=== PATIENT | female | born 1950 | race Caucasian/White ===

== ENCOUNTER 2019-04-11 09:30 | Inpatient (IN) ==
[2019-04-11 10:12] LABS: BASO# 0.01 X1000 (0.0-0.2); BASO% 0.1 % (0.0-0.8); EOS# 0.02 X1000 (0.0-0.7); EOS% 0.2 % (0.0-10.0); HEMATOCRIT 42.5 % (37.0-47.0); HEMOGLOBIN 14.4 g/dL (12.0-16.0); IMM GRAN# 0.02 X1000 (0.0-0.04); IMM GRAN% 0.2 % (0.0-0.5); LYMPH# 1.38 X1000 (1.2-3.4); LYMPH% 14.1 % (20.5-51.1); MCH 29.8 PG (27-31); MCHC 33.9 g/dL (33-37); MCV 87.8 FL (81-99); MONO# 1.13 X1000 (0.11-0.59); MONO% 11.5 % (1.7-9.3); MPV 10.1 FL (7.4-10.4); NEUT# 7.23 X1000 (1.4-6.5); NEUT% 73.9 % (42.2-75.2); PLT 270 X1000 (130-400); RBC 4.84 XMIL (4.2-5.4); RDW 13.8 % (11.5-14.5); WBC 9.79 X1000 (4.8-10.8)
--- NOTE | 2019-04-11 10:22 | PROVIDER DOCUMENTATION ---
This chart was entered by Samantha Obrien Scribe, acting as scribe for Shorty Muniz MD. HPI-Respiratory General - General Chief Complaint: Shortness of Breath Stated Complaint: sob Time Seen by Provider: 04/11/19 09:55 Source: patient Allergies/Adverse Reactions: Patient Allergies Allergy/AdvReac Type Severity Reaction Status Date / Time No Known Allergies Allergy Verified 04/11/19 09:52 Home Medications: Home Medication List Medication Instructions Recorded Confirmed Last Taken Type Umeclidinium [place] [Incruse 1 puff IH DAILY 02/25/16 04/11/19 02/25/16 History Ellipta] Alprazolam [Xanax] 2 mg PO TID 10/07/16 04/11/19 Unknown History Atorvastatin Calcium [Lipitor] 40 mg PO QAM 10/07/16 04/11/19 Unknown History Fenofibrate Nanocrystallized 145 mg PO QHS 10/07/16 04/11/19 Unknown History [Tricor] Fluoxetine HCl [Prozac] 40 mg PO BID 10/07/16 04/11/19 Unknown History Albuterol Sulfate [Ventolin Hfa] 2 puff INH BID 04/11/19 04/11/19 Unknown History - History of Present Illness-Resp Nature of Presenting Problem: 68 y/o female with history of COPD complaining of worsening SOB and cough for past 3 days ago. Pt used to be on home O2, but was taken off of it. Pt is alert and oriented. Quality of Pain: reports: none Severity in ED: reports: mild Onset/Duration: reports: 2 days ago Timing: reports: still present, getting worse Context: reports: other (hx COPD) Exposure: reports: other (hx COPD) Cough Quality/Degree: reports: moderate Episode Frequency: chronic episodes (hx COPD) Current Respiratory Medication Therapy: Initiated see nurses note Modifying Factors: improves with: nothing Associated Symptoms: reports: cough, shortness of breath, short of breath Similar Symptoms Previously?: Yes (hx COPD) Recently seen or treated by another doctor?: No Review of Systems - Adult - REVIEW OF SYSTEMS - ADULT Constitutional: denies: chills, fever Eyes: reports: no symptoms reported Ears, Nose, Mouth & Throat: reports: no symptoms reported Cardiovascular: denies: chest pain, palpitations Respiratory: reports: cough, shortness of breath Gastrointestinal: denies: abdominal pain, diarrhea, nausea, vomiting Genitourinary: reports: no symptoms reported Musculoskeletal: denies: back pain, joint pain Integumentary: reports: no symptoms reported Neurological: denies: dizziness/vertigo, seizure Psychiatric: reports: no symptoms reported Endocrine: reports: no symptoms reported Hematologic/Lymphatic: reports: no symptoms reported Allergic/Immunologic: reports: no symptoms reported All Other Systems: Reviewed and Negative Past History - Adult - PAST MEDICAL HISTORY-ADULT Review of Records: reports: Old Records Reviewed, Nursing Assessment Review, Medications Reviewed Major Childhood Illnesses: reports: denies history Cardiovascular: reports: HTN, hyperlipidemia Respiratory: reports: COPD Gastrointestinal: reports: cancer (colon), GERD, other (hernia) Obstetrical/Gynecological: reports: denies history Genitourinary: reports: denies history Musculoskeletal: reports: denies history Neurological: reports: denies history Endocrine/Immune: reports: denies history Other Conditions: reports: denies history - PRIOR SURGERIES/PROCEDURES Surgical/Procedure History: reports: appendectomy, hysterectomy, other (colon resection with colostomy/ colostomy reversal; blood clots, throat, tumors) - IMMUNIZATION STATUS Childhood Immunizations: See Nurse Assessment Flu Vaccine: See Nurse Assessment - FAMILY HISTORY Family History: reviewed, not pertinent - SOCIAL HISTORY Smoking: greater than 1 pack/day Provider spent 3-5 mins advising pt. on dangers of tobacco.: Discussed manners to quit use, and f/u contacts for add'l counseling. Substance Use: none/never Alcohol Use Frequency: never Living Situation: family Physical Exam-General - PHYSICAL EXAM-ADULT Initial Vital Signs Reviewed: Yes (93% O2 sat with nebulizer) - CONSTITUTIONAL General Appearance: appears well, alert, no apparent distress - EYES Eyes: PERRL/EOMI, pink conjunctivae - HEAD, EARS, NOSE, MOUTH & THROAT HENMT: normocephalic/atraumatic, moist mucous membranes, normal ENT inspection - NECK Neck: non-tender, full range of motion - RESPIRATORY Respiratory: chest non-tender, no respiratory distress, no accessory muscle use, decreased breath sounds, wheezing - CARDIOVASCULAR Cardiovascular: normal peripheral pulses, regular rate, rhythm - GASTROINTESTINAL (ABDOMEN) Abdominal Exam: normal bowel sounds, non tender, soft, hernia (ventral) - MUSCULOSKELETAL Back Exam: normal inspection, no CVA tenderness Extremity: normal range of motion, non-tender, normal gait - SKIN Integumentary: normal color, warm/dry - NEUROLOGIC Neurologic: grossly normal - PSYCHIATRIC Psych/Mental Status: normal mood/affect, normal thought content, normal thought process - HEART Score HEART Score: History: Slightly Suspicious HEART Score: ECG: Normal HEART Score: Age: > or = 65 Years HEART Score: Risk Factors for Atherosclerotic Disease: 1 or 2 Risk Factors HEART Score: Troponin: < or = Normal Limit Total HEART Score:: 3 Progress - PLAN OF CARE/RESULTS Progress/Plan/Lab Results: Vital Signs - 8 hr 04/11/19 09:45 04/11/19 10:00 04/11/19 10:19 Temperature 98.2 F Pulse Rate 98 H 101 H 95 H Respiratory Rate 25 H 19 Blood Pressure 128/102 132/110 O2 Sat by Pulse Oximetry 88 L 93 L 93 L 04/11/19 10:30 04/11/19 11:00 04/11/19 11:30 Temperature Pulse Rate 98 H 96 H 87 Respiratory Rate 20 18 20 Blood Pressure 122/84 123/74 112/85 O2 Sat by Pulse Oximetry 93 L 89 L 04/11/19 12:00 04/11/19 12:30 Temperature Pulse Rate 91 H 87 Respiratory Rate 18 19 Blood Pressure 127/91 145/98 O2 Sat by Pulse Oximetry Laboratory Results - last 24 hr 04/11/19 04/11/19 04/11/19 10:03 10:03 10:03 WBC 9.79 RBC 4.84 Hgb 14.4 Hct 42.5 MCV 87.8 MCH 29.8 MCHC 33.9 RDW Std Deviation 13.8 Plt Count 270 MPV 10.1 Immature Gran % (Auto) 0.2 Neut % (Auto) 73.9 Lymph % (Auto) 14.1 L [place] % (Auto) 11.5 H Eos % (Auto) 0.2 Baso % (Auto) 0.1 Immature Gran # (Auto) 0.02 Neut # (Auto) 7.23 H Lymph # (Auto) 1.38 [place] # (Auto) 1.13 H Eos # (Auto) 0.02 Baso # (Auto) 0.01 PT 13.2 INR 0.95 PTT (Actin FS) 28.7 Specimen Type Sample Site pH pCO2 pO2 HCO3 Base Excess Oxyhemoglobin ABG O2 Sat (Calculated) ABG O2 Saturation ABG Carboxyhemoglobin ABG Methemoglobin Hal Test A-a O2 Difference Total Hemoglobin Lactate Liter Flow Blood Gas Modality FiO2 % Sodium 139 Potassium 4.2 Chloride 101 Carbon Dioxide 23 L Anion Gap 14 BUN 21 Creatinine 0.7 Estimated GFR/1.73 m2 > 60 BUN/Creatinine Ratio 30 Glucose 115 H Calculated Osmolality 281 Calcium 9.2 Total Bilirubin 0.20 AST 16 ALT 12 Alkaline Phosphatase 51 Creatine Kinase 95 Troponin T Total Protein 6.9 Albumin 4.4 Globulin 3.0 Albumin/Globulin Ratio 2.0 Plasma Lactate Urine Source Urine Color Urine Clarity Urine pH Ur Specific [place] Urine Protein Urine Ketones Urine Blood Urine Nitrite Urine Bilirubin Urine Urobilinogen Urine Microscopic RBC Urine WBC Urine Microscopic WBC Ur Epithelial Cells Urine Crystals Urine Bacteria Urine Casts Urine Yeast Urine Glucose 04/11/19 04/11/19 04/11/19 10:03 10:03 10:14 WBC RBC Hgb Hct MCV MCH MCHC RDW Std Deviation Plt Count MPV Immature Gran % (Auto) Neut % (Auto) Lymph % (Auto) [place] % (Auto) Eos % (Auto) Baso % (Auto) Immature Gran # (Auto) Neut # (Auto) Lymph # (Auto) [place] # (Auto) Eos # (Auto) Baso # (Auto) PT INR PTT (Actin FS) Specimen Type ARTERIAL Sample Site R RADIAL pH 7.38 pCO2 45 pO2 69 HCO3 25.5 Base Excess 1.0 Oxyhemoglobin 90.7 L ABG O2 Sat (Calculated) 19.4 ABG O2 Saturation 95.6 ABG Carboxyhemoglobin 3.90 H ABG Methemoglobin 1.2 Hla Test YES A-a O2 Difference 74.0 Total Hemoglobin 15.2 Lactate 1.20 Liter Flow 2.0 Blood Gas Modality CANNULA FiO2 % 28.0 Sodium Potassium Chloride Carbon Dioxide Anion Gap BUN Creatinine Estimated GFR/1.73 m2 BUN/Creatinine Ratio Glucose Calculated Osmolality Calcium Total Bilirubin AST ALT Alkaline Phosphatase Creatine Kinase Troponin T < 0.010 Total Protein Albumin Globulin Albumin/Globulin Ratio Plasma Lactate 1.2 Urine Source Urine Color Urine Clarity Urine pH Ur Specific Theodore Urine Protein Urine Ketones Urine Blood Urine Nitrite Urine Bilirubin Urine Urobilinogen Urine Microscopic RBC Urine WBC Urine Microscopic WBC Ur Epithelial Cells Urine Crystals Urine Bacteria Urine Casts Urine Yeast Urine Glucose 04/11/19 10:40 WBC RBC Hgb Hct MCV MCH MCHC RDW Std Deviation Plt Count MPV Immature Gran % (Auto) Neut % (Auto) Lymph % (Auto) [place] % (Auto) Eos % (Auto) Baso % (Auto) Immature Gran # (Auto) Neut # (Auto) Lymph # (Auto) [place] # (Auto) Eos # (Auto) Baso # (Auto) PT INR PTT (Actin FS) Specimen Type Sample Site pH pCO2 pO2 HCO3 Base Excess Oxyhemoglobin ABG O2 Sat (Calculated) ABG O2 Saturation ABG Carboxyhemoglobin ABG Methemoglobin Hal Test A-a O2 Difference Total Hemoglobin Lactate Liter Flow Blood Gas Modality FiO2 % Sodium Potassium Chloride Carbon Dioxide Anion Gap BUN Creatinine Estimated GFR/1.73 m2 BUN/Creatinine Ratio Glucose Calculated Osmolality Calcium Total Bilirubin AST ALT Alkaline Phosphatase Creatine Kinase Troponin T Total Protein Albumin Globulin Albumin/Globulin Ratio Plasma Lactate Urine Source CLEAN CATCH Urine Color YELLOW Urine Clarity CLEAR Urine pH 6.0 Ur Specific Theodore 1.015 Urine Protein NEGATIVE Urine Ketones NEGATIVE Urine Blood NEGATIVE Urine Nitrite NEGATIVE Urine Bilirubin NEGATIVE Urine Urobilinogen NORMAL Urine Microscopic RBC <10 Urine WBC TRACE A Urine Microscopic WBC <10 Ur Epithelial Cells <10 Urine Crystals NONE SEEN Urine Bacteria 1+ Urine Casts NONE SEEN Urine Yeast NONE SEEN Urine Glucose NEGATIVE Orders Category Date Time Status Admit - [facility] Routine AdmDCTranf 04/11/19 12:27 Active Activity - Bed Rest with BRP ORDERED Care 04/11/19 12:27 Active Cardiac Monitoring DIRECTED Care 04/11/19 09:50 Active IV Insertion ORDERED Care 04/11/19 09:50 Completed Notify MD of + Sepsis Screen NOW Care 04/11/19 09:50 Active Notify Physician As Ordered Care 04/11/19 09:50 Active Resuscitation Status Routine Care 04/11/19 12:27 Ordered Vital Signs Order Q 4-HR ASSESS Care 04/11/19 12:27 Active Z-Document. for Tele Applied ORDERED Care 04/11/19 12:30 Active Heart Healthy Diet Diet 04/11/19 12:29 Active CHEST-1 VIEW [RAD] Stat Exams 04/11/19 09:50 Completed ABG [RESP] Routine Lab 04/11/19 10:14 Completed CBC WITH DIFF [HEME] Stat Lab 04/11/19 10:03 Completed CK PROFILE [SP CHEM] Stat Lab 04/11/19 10:03 Completed COMPREHENSIVE METABOLIC PANEL [CHEM] Stat Lab 04/11/19 10:03 Completed LACTATE, PLASMA [CHEM] Lab 04/11/19 10:03 Completed PROTIME WITH INR [COAG] Stat Lab 04/11/19 10:03 Completed PTT [COAG] Stat Lab 04/11/19 10:03 Completed TROPONIN T Stat Lab 04/11/19 10:[address] W/POSS RFLX CULT [URINALYSIS] Stat Lab 04/11/19 10:40 Completed Albuterol 2.5MG/Ipratrop 0.5MG [Duoneb (A & A)] Med 04/11/19 11:02 Discontinued 3 ml INH NOW ONE Albuterol 2.5MG/Ipratrop 0.5MG [Duoneb (A & A)] Med 04/11/19 15:30 Active 3 ml INH RTQ4H Methylprednisolone Sod Succ [Solu-Medrol] Med 04/11/19 10:23 Discontinued 125 mg IV NOW ONE Methylprednisolone Sod Succ [Solu-Medrol] Med 04/11/19 17:00 Active 125 mg IV Q6H Ondansetron [Zofran] Med 04/11/19 12:27 Active 4 mg IV Q4H PRN PRN Aerosol Treatments Routine Oth 04/11/19 11:02 Completed Aerosol Treatments Routine Oth 04/11/19 12:30 Active Aerosol Treatments Stat Oth 04/11/19 11:02 Completed Aerosol Treatments Stat Oth 04/11/19 12:30 Active Oxygen Device Routine Oth 04/11/19 12:29 Active Oxygen Device Stat Oth 04/11/19 09:50 Completed Telemetry [OM.EQ] Routine Oth 04/11/19 12:27 Active EKG [EKG] Routine Ther 04/11/19 Completed Transfer/Admit Order [TRANSFER] Routine Transfer 04/11/19 12:30 Completed Result Diagrams: 04/11/19 10:03 04/11/19 10:03 - REASSESSMENT Reassessment #1 Time Reassessed: 11:30 Status: unchanged Reassessment Comment: continues to be hypoxic with RA sat of 87% - EKG 1 Time of EKG reading by physician:: 09:44 EKG Read and Signed by:: Shorty Muniz EKG Interpretation (*Must complete 3 of following elements*): Abnormal Rate: 99 Rhythm: Undetermined [place]: normal QRS: other (cannot rule out inferior infarct) ND Interval: normal ST Wave: non-specific ST changes (consider lateral ischemia) 2 Time of EKG reading by physician:: 09:51 EKG Read and Signed by:: Shorty Muniz EKG Interpretation (*Must complete 3 of following elements*): Normal Rate: 96 Rhythm: NSR [place]: normal QRS: normal ND Interval: normal ST Wave: normal - XRAY 1 XRAY Study: Chest XRAY Interpretation: NAD Departure - Departure Date of Disposition Decision: 04/11/19 Time of Disposition Decision: 13:06 DIAGNOSIS: COPD exacerbation, Hypoxemia Disposition: ADMITTED INPATIENT 09 Certified Medical Emergency: Emergent Condition: Stable - Critical Care Note This patient required my direct & personal management of CC.: Yes Attestation - Physician/ LAURENT Attestation Patient care was provided by Advanced Practice Provider:: No The physician spent face to face time with patient:: Yes Advanced Practice Provider documentation review:: Supervising physician onsite and consulted in the evaluation and care of this patient. The physician did have a face to face encounter with the patient. This chart was documented by the indicated scribe, (Samantha Obrien Scribe) and accurately reflects the services I performed and decisions made by me, Shorty Muniz MD, as attested by the provider's signature.
[2019-04-11] MEDS ORDERED: SOLU-MEDROL IV ONE (10:23)
[2019-04-11 10:28] LABS: AGAP 14; ALBUMIN 4.4 g/dL (3.5-5.0); ALKALINE PHOSPHATASE 51 U/L (32-104); BUN 21 mg/dL (8-22); CALCIUM 9.2 mg/dL (8.8-10.2); CHLORIDE 101 mmol/L (98-107); CK PROFILE 95 U/L (24-173); COSMO 281; CREATININE 0.7 mg/dL (0.5-0.9); ESTIMATED GFR > 60; GLUCOSE 115 mg/dL (70-104); GOT 16 U/L (10-30); GPT 12 U/L (10-36); POTASSIUM 4.2 mmol/L (3.5-5.1); SODIUM 139 mmol/L (136-145); TCO2 23 mmol/L (25-35); TOTAL PROTEIN 6.9 g/dL (6.3-8.3)
[2019-04-11 10:29] LABS: BLOOD TYPE ARTERIAL; HCO3-(ACT) 25.5 mmoll (20.0-26.0); METHB 1.2 % (0.0-1.5); O2(CT) 19.4 mL/dL (15.0-23.0); O2HB 90.7 % (95.0-99.0); PCO2(98.6) 45 mmHg (35-45); PO2(98.6) 69 mmHg (60-100); SAMPLE BLOOD; SAO2 95.6 % (95.0-100.0); THB 15.2 g/dL (11.5-17.4); pH(98.6) 7.38 (7.35-7.45)
--- NOTE | 2019-04-11 10:30 | Diag Imaging Result Doc PS360 ---
EXAM: CHEST-1 VIEW - 04/11/2019 HISTORY: sob TECHNIQUE: Portable chest COMPARISON: 10/07/2016 FINDINGS: Heart size appears within normal limits. There is mild prominence of infrahilar markings which is stable, possibly related to mild COPD changes. There is mild blunting of the right costophrenic sulcus which is stable. Compared the prior exam, there are no acute changes identified. There is no consolidation or pneumothorax identified. IMPRESSION: Stable exam compared to 10/07/2016. Electronically signed by Polo Kennedy 04/11/2019 10:28 AM
[2019-04-11 10:32] LABS: ALLEN TEST YES; MODALITY CANNULA
[2019-04-11 10:56] LABS: BILIRUBIN URINE NEGATIVE (NEGATIVE); BLOOD URINE NEGATIVE (NEGATIVE); GLUCOSE URINE NEGATIVE (NEGATIVE); KETONE URINE NEGATIVE (NEGATIVE); LEUKOCYTES URINE TRACE (NEGATIVE); NITRITE URINE NEGATIVE (NEGATIVE); PROTEIN URINE NEGATIVE (NEGATIVE); SP GRAVITY URINE 1.015; UROBILINOGEN URINE NORMAL
[2019-04-11 10:57] LABS: CLARITY CLEAR (CLEAR); COLOR YELLOW; URINE BACTERIA 1+ /HFP; URINE CAST NONE SEEN /LPF; URINE CRYSTAL NONE SEEN /HPF; URINE EPITHELIAL CELLS <10 /HPF (<10); URINE RBC <10 /HPF (<10); URINE SOURCE CLEAN CATCH; URINE WBC <10 /HPF (<10); URINE YEAST NONE SEEN /HPF
[2019-04-11] MEDS ORDERED: DUONEB (A & A) INH ONE (11:02)
[2019-04-11 11:19] LABS: INR 0.95; PROTIME 13.2 Seconds (11.0-16.0)
[2019-04-11 11:20] LABS: PTT 28.7 Seconds (22.3-41.8)
[2019-04-11] MEDS ORDERED: ZOFRAN IV PRN (12:27)
[2019-04-11] MEDS ORDERED: SALINE LOCK IV FLUID XX ONE (14:06)
[2019-04-11] MEDS ORDERED: TYLENOL PO PRN (14:06)
[2019-04-11] MEDS: DUONEB (A & A) INH SCH ×3 (14:54→22:52)
[2019-04-11] MEDS: INCRUSE ELLIPTA INH SCH (14:54)
[2019-04-11] MEDS: XANAX PO SCH ×2 (15:12→22:00)
--- NOTE | 2019-04-11 16:24 | EKG Report ---
Test Performed on : 04/11/2019 09:51:16 AM Test Reason : ER Blood Pressure : / mmHG Vent. Rate : 096 BPM Atrial Rate : 096 BPM P-R Int : 120 ms QRS Dur : 072 ms QT Int : 372 ms P-R-T Axes : 064 055 084 degrees QTc Int : 469 ms Normal sinus rhythm. Normal ECG When compared with ECG of 11-APR-2019 09:45, (Unconfirmed) Previous ECG has undetermined rhythm, needs review Borderline criteria for Inferior infarct are no longer present Non-specific change in ST segment in Inferior leads ST no longer depressed in Lateral leads T wave inversion no longer evident in Lateral leads QT has shortened Unconfirmed Result
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
[2019-04-11] MEDS: SOLU-MEDROL IV SCH ×2 (17:16→22:00)
--- NOTE | 2019-04-11 19:22 | HISTORY AND PHYSICAL ---
HISTORY AND PHYSICAL ADDENDUM: CHIEF COMPLAINT: Shortness of breath. HISTORY OF PRESENT ILLNESS: Patient presented to the hospital with increased work of breathing, shortness of breath. States that she had been on oxygen in the past but it was stopped approximately a year ago. She has been getting more short of breath, dyspnea on exertion with activity. Interestingly, she has on the side mentions that she has lost approximately 30 pounds in the past several months. PLAN: We will admit her to the hospital. She currently is in no respiratory distress, but she is back on oxygen. We will continue her on oxygen, put her on steroids, breathing treatments and will follow. She certainly will need to have a complete workup for her weight loss as well. NOTE: Please see full note. cc: Oneil Camp MD
[2019-04-11] MEDS: ADVAIR 500/50 DISKUS INH SCH (19:49)
[2019-04-11] MEDS: PROZAC PO SCH (22:00)
[2019-04-11] MEDS: TRICOR PO SCH (22:01)
[2019-04-11] MEDS: LIPITOR PO SCH (22:01)
[2019-04-12] MEDS: DUONEB (A & A) INH SCH ×6 (03:12→23:53)
[2019-04-12] MEDS: SOLU-MEDROL IV SCH ×3 (05:58→21:04)
[2019-04-12] MEDS: XANAX PO SCH ×4 (06:38→21:04)
[2019-04-12 07:28] LABS: AGAP 16; BUN 22 mg/dL (8-22); CALCIUM 9.6 mg/dL (8.8-10.2); CHLORIDE 98 mmol/L (98-107); COSMO 284; CREATININE 0.8 mg/dL (0.5-0.9); ESTIMATED GFR > 60; GLUCOSE 158 mg/dL (70-104); POTASSIUM 4.1 mmol/L (3.5-5.1); SODIUM 139 mmol/L (136-145); TCO2 25 mmol/L (25-35)
[2019-04-12 07:34] LABS: HEMATOCRIT 43.8 % (37.0-47.0); HEMOGLOBIN 14.4 g/dL (12.0-16.0); IMM GRAN# 0.02 X1000 (0.0-0.04); IMM GRAN% 0.1 % (0.0-0.5); LYMPH# 0.64 X1000 (1.2-3.4); LYMPH% 4.3 % (20.5-51.1); MCH 29.5 PG (27-31); MCHC 32.9 g/dL (33-37); MCV 89.8 FL (81-99); MONO# 0.59 X1000 (0.11-0.59); MPV 10.7 FL (7.4-10.4); NEUT# 13.52 X1000 (1.4-6.5); NEUT% 91.6 % (42.2-75.2); PLT 288 X1000 (130-400); RBC 4.88 XMIL (4.2-5.4); RDW 14.2 % (11.5-14.5); WBC 14.77 X1000 (4.8-10.8)
[2019-04-12] MEDS: INCRUSE ELLIPTA INH SCH (07:43)
[2019-04-12] MEDS: ADVAIR 500/50 DISKUS INH SCH ×2 (07:47→19:46)
--- NOTE | 2019-04-12 08:07 | Diag Imaging Result Doc PS360 ---
EXAM: CHEST-PORTABLE - 04/12/2019 HISTORY: short of breath TECHNIQUE: Portable chest COMPARISON: 04/11/2019 FINDINGS: Allowing for the AP projection, heart size appears within normal limits. There are apparent mild COPD changes with prominence of infrahilar markings, similar to prior. There is stable mild blunting of the right costophrenic sulcus which may relate to mild pleural thickening or small pleural effusion. There is no dense consolidation or pneumothorax identified. IMPRESSION: Stable exam from prior. Apparent mild COPD changes with infrahilar marking prominence. No discrete pneumonia. Electronically signed by Polo Kennedy 04/12/2019 8:04 AM
[2019-04-12] MEDS: PROZAC PO SCH ×2 (08:18→21:04)
[2019-04-12 09:52] LABS: LYMPHS 5 % (21-51); MONO 5 % (1-9); SEGS 90 % (42-75)
[2019-04-12] MEDS: NICODERM PATCH TD PRN (11:18)
[2019-04-12] MEDS: ZOSYN 3.375 GM in NS 50 ML IV SCH ×2 (14:08→21:03)
[2019-04-12] MEDS ORDERED: DUONEB (A & A) INH PRN (18:00)
[2019-04-12] MEDS: LIPITOR PO SCH (21:04)
[2019-04-12] MEDS: TRICOR PO SCH (21:04)
--- NOTE | 2019-04-12 21:20 | PROGRESS NOTE ---
DATE: 04/12/2019 SUBJECTIVE: Patient notes that overall she is feeling a little bit better, still having lots of coughing and wheezing. Still having shortness of breath. Denies any fevers currently. Denies any chills. PHYSICAL EXAMINATION: Vital Signs: Reviewed. She is awake, alert. She is in mild respiratory distress. HEENT: Normocephalic. Neck: Supple. Cardiovascular: Regular rate. Chest: Clear currently, although she just had a breathing treatment. She was wheezing prior to that. Abdomen: Soft, nondistended. Extremities: Moves all extremities. ASSESSMENT: 1. Chronic obstructive pulmonary disease with exacerbation. 2. Chronic anxiety. 3. High cholesterol. PLAN: We will continue patient in hospital. Wean Solu-Medrol and will follow. cc: Oneil Camp MD
[2019-04-13] MEDS: ZOSYN 3.375 GM in NS 50 ML IV SCH ×4 (02:09→20:53)
[2019-04-13] MEDS: DUONEB (A & A) INH SCH ×2 (04:10→07:30)
[2019-04-13] MEDS: SOLU-MEDROL IV SCH ×3 (05:19→20:53)
[2019-04-13 06:36] LABS: BE 1.3 mmoll (-3.0-3.0); BLOOD TYPE ARTERIAL; HCO3-(ACT) 25.8 mmoll (20.0-26.0); METHB 1.1 % (0.0-1.5); O2(CT) 18.1 mL/dL (15.0-23.0); O2HB 93.9 % (95.0-99.0); PCO2(98.6) 47 mmHg (35-45); PO2(98.6) 76 mmHg (60-100); SAMPLE BLOOD; SAO2 96.5 % (95.0-100.0); THB 13.7 g/dL (11.5-17.4); pH(98.6) 7.37 (7.35-7.45)
[2019-04-13 06:41] LABS: MODALITY CANNULA
[2019-04-13 06:42] LABS: ALLEN TEST YES
[2019-04-13 06:51] LABS: POTASSIUM 4.2 mmol/L (3.5-5.1)
[2019-04-13 06:52] LABS: CALCIUM 9.5 mg/dL (8.8-10.2); CREATININE 1.1 mg/dL (0.5-0.9)
[2019-04-13 07:02] LABS: BASO# 0.01 X1000 (0.0-0.2); HEMATOCRIT 42.4 % (37.0-47.0); HEMOGLOBIN 13.5 g/dL (12.0-16.0); IMM GRAN# 0.08 X1000 (0.0-0.04); IMM GRAN% 0.3 % (0.0-0.5); LYMPH# 0.52 X1000 (1.2-3.4); LYMPH% 2.1 % (20.5-51.1); MCH 29.1 PG (27-31); MCHC 31.8 g/dL (33-37); MCV 91.4 FL (81-99); MONO# 1.24 X1000 (0.11-0.59); MPV 10.5 FL (7.4-10.4); NEUT# 22.71 X1000 (1.4-6.5); NEUT% 92.6 % (42.2-75.2); PLT 268 X1000 (130-400); RBC 4.64 XMIL (4.2-5.4); RDW 14.6 % (11.5-14.5); WBC 24.56 X1000 (4.8-10.8)
--- NOTE | 2019-04-13 07:32 | Diag Imaging Result Doc PS360 ---
EXAM: CHEST-PORTABLE HISTORY: copd TECHNIQUE: Chest single view COMPARISON: 04/12/2019 FINDINGS: The lungs are hyperexpanded. Mild increased interstitial markings believed to be fibrosis. No consolidation. The heart is mildly prominent. No pleural effusions identified. IMPRESSION: Stable chest. Electronically signed by Madi Whitaker 04/13/2019 7:29 AM
[2019-04-13] MEDS: ADVAIR 500/50 DISKUS INH SCH ×2 (07:35→19:15)
[2019-04-13] MEDS: INCRUSE ELLIPTA INH SCH (07:35)
[2019-04-13 07:40] LABS: LYMPHS 4 % (21-51); MONO 3 % (1-9); SEGS 93 % (42-75)
[2019-04-13] MEDS: XANAX PO SCH ×3 (08:41→20:54)
[2019-04-13] MEDS: PROZAC PO SCH ×2 (08:41→20:54)
[2019-04-13] MEDS ORDERED: XOPENEX NEB INH PRN (11:05)
[2019-04-13] MEDS: XOPENEX NEB INH SCH ×4 (11:13→23:01)
[2019-04-13] MEDS: NICODERM PATCH TD PRN (12:12)
[2019-04-13] MEDS: LIPITOR PO SCH (20:54)
[2019-04-13] MEDS: TRICOR PO SCH (20:54)
--- NOTE | 2019-04-13 23:31 | PROGRESS NOTE ---
DATE: 04/13/2019 SUBJECTIVE: Patient has no new complaints. Although she states that she is starting to feel better, she is still having some wheezing and shortness of breath with dyspnea on exertion. Denies any chest pain. Denies any GI or issues. PHYSICAL EXAMINATION: Vital Signs: Temperature 97.3 degrees, pulse 100, respiratory 18, BP 106/62. General: Patient is pleasant. She is in no current respiratory distress. She is currently receiving a breathing treatment. HEENT: Normocephalic. Neck: Supple. Cardiovascular: Regular rate. Chest: Clear to faint wheezing but much improved. Much better air movement. Abdomen: Soft. Extremities: Moves all extremities. ASSESSMENT: 1. Chronic obstructive pulmonary disease with exacerbation. 2. Chronic anxiety, depression. 3. High cholesterol. PLAN: Continue patient in the hospital, oxygen, breathing treatments. We will continue Solu- Medrol although will decrease to 40 IV q.8. Hopefully, if she continues to improve she may be able to discharge home over the next 1 or 2 days. cc: Oneil Camp MD
[2019-04-14] MEDS: XOPENEX NEB INH SCH ×6 (03:19→23:13)
[2019-04-14] MEDS: ZOSYN 3.375 GM in NS 50 ML IV SCH ×4 (03:44→20:35)
[2019-04-14] MEDS: SOLU-MEDROL IV SCH ×3 (05:43→20:35)
[2019-04-14] MEDS: XANAX PO SCH ×3 (08:18→20:34)
[2019-04-14] MEDS: PROZAC PO SCH ×2 (08:18→20:34)
[2019-04-14] MEDS: ADVAIR 500/50 DISKUS INH SCH ×2 (08:31→19:17)
[2019-04-14] MEDS: INCRUSE ELLIPTA INH SCH (08:32)
[2019-04-14] MEDS: NICODERM PATCH TD PRN (12:37)
[2019-04-14] MEDS: TRICOR PO SCH (20:34)
[2019-04-14] MEDS: LIPITOR PO SCH (20:35)
--- NOTE | 2019-04-14 22:51 | PROGRESS NOTE ---
DATE: 04/14/2019 SUBJECTIVE: The patient notes that she is feeling a little bit better. Still coughing, still short of breath, and still having difficulty making it back and forth to the restroom. Notes that she is uncomfortable going home today due to her shortness of breath. PHYSICAL EXAMINATION: Vital signs: Temperature 98, pulse 81, respiratory 18, BP 150/57. General: The patient is very pleasant to talk with. She is in no current respiratory distress after a breathing treatment. She was in mild distress prior to the treatment. HEENT: Normocephalic. Neck: Supple. Cardiovascular: Regular rate. Chest: Mild wheezing throughout. Good air movement. No accessory muscle usage. Abdomen: Soft, nondistended. Extremities: Moves all extremities. ASSESSMENT: 1. Chronic obstructive pulmonary disease with exacerbation. 2. Acute hypoxic respiratory failure. The patient has a known history of requiring oxygen but has been off oxygen over the last year or so. 3. Chronic anxiety and depression. 4. High cholesterol. 5. Chronic tobacco abuse. PLAN: We will continue the patient in the hospital. Continue breathing treatments, oxygen, steroids. Will wean as tolerated. Hopefully home over the next 1 or 2 days if she continues to improve. cc: Oneil Camp MD
[2019-04-15] MEDS: ZOSYN 3.375 GM in NS 50 ML IV SCH ×2 (01:11→08:42)
[2019-04-15] MEDS: XOPENEX NEB INH SCH ×6 (03:25→22:54)
[2019-04-15] MEDS: SOLU-MEDROL IV SCH ×3 (04:44→20:37)
[2019-04-15] MEDS: ADVAIR 500/50 DISKUS INH SCH ×2 (07:37→19:10)
[2019-04-15] MEDS: INCRUSE ELLIPTA INH SCH (07:37)
[2019-04-15] MEDS: XANAX PO SCH ×3 (08:43→20:37)
[2019-04-15] MEDS: PROZAC PO SCH ×2 (08:43→20:37)
[2019-04-15] MEDS: OMNICEF PO SCH ×2 (09:21→20:37)
[2019-04-15] MEDS: NICODERM PATCH TD PRN (14:42)
[2019-04-15] MEDS: TRICOR PO SCH (20:37)
[2019-04-15] MEDS: LIPITOR PO SCH (20:37)
[2019-04-16] MEDS: XOPENEX NEB INH SCH ×6 (03:53→22:54)
[2019-04-16] MEDS: SOLU-MEDROL IV SCH ×2 (05:52→18:07)
[2019-04-16] MEDS: ADVAIR 500/50 DISKUS INH SCH ×2 (07:51→19:15)
[2019-04-16] MEDS: INCRUSE ELLIPTA INH SCH (07:51)
[2019-04-16] MEDS: XANAX PO SCH ×3 (09:17→20:37)
[2019-04-16] MEDS: OMNICEF PO SCH ×2 (09:17→20:36)
[2019-04-16] MEDS: PROZAC PO SCH ×2 (09:17→20:37)
[2019-04-16] MEDS: NICODERM PATCH TD PRN (15:17)
[2019-04-16] MEDS ORDERED: TUMS PO ONE (18:13)
[2019-04-16] MEDS: LIPITOR PO SCH (20:36)
[2019-04-16] MEDS: TRICOR PO SCH (20:37)
--- NOTE | 2019-04-16 21:34 | PROGRESS NOTE ---
DATE: 04/16/2019 SUBJECTIVE: The patient notes she still gets very short of breath with any activity. Has difficulty making it to the restroom and back due to [*] PHYSICAL EXAMINATION: Vital signs: Temperature 98 degrees, pulse 80s, respiratory 20, BP 168/89. General: The patient is in mild respiratory distress. Pleasant to talk with. HEENT: Normocephalic. Neck: Supple. Cardiovascular: Regular rate. Chest: Decreased but improved from admission. Positive wheezing bilaterally but also improved from admission. Abdomen: Soft, nondistended. Extremities: Moves all extremities. Neurologic: No changes. ASSESSMENT: 1. Chronic obstructive pulmonary disease with acute exacerbation. 2. Chronic anxiety. 3. High cholesterol. 4. Hypoxic respiratory failure. PLAN: We will continue the patient in the hospital. Continue Solu-Medrol, breathing treatments, oxygen, and will follow. Hopefully, the patient can discharge home soon. Certainly expect that she may need rehab. Currently, she is declining that. cc: Oneil Camp MD
[2019-04-17] MEDS: XOPENEX NEB INH SCH ×4 (03:34→15:43)
--- NOTE | 2019-04-17 04:16 | PROGRESS NOTE ---
DATE: 04/15/2019 SUBJECTIVE: Patient states she still is short of breath, having difficulty getting from the bed to the bathroom. States that once she goes she has to sit for a while before she can recover. Denies any chest pain, palpitations. Denies any fevers or chills. OBJECTIVE: VITAL SIGNS: Reviewed and stable. GENERAL: Mild respiratory distress while sitting in the bed. She notes that with any activity her symptoms worsen. Denies any current fevers. HEENT: Normocephalic, atraumatic. OSCAR. NECK: Supple. CV: Regular rate. No murmurs. CHEST: Decreased breath sounds bilaterally. Positive wheezing throughout but much better air movement than previously. No crackles. Mildly labored. ABDOMEN: Soft, nondistended. EXTREMITIES: Moves all extremities. No edema. NEUROLOGIC: No changes. ASSESSMENT: 1. Chronic obstructive pulmonary disease with exacerbation. The patient has chronic relatively severe COPD. Unsure of how much improvement she will actually have. 2. Acute hypoxic respiratory failure. Patient was not on oxygen at home but certainly expect that she will need to be discharged home on oxygen. 3. Chronic tobacco abuse. Again discussed with the patient the perils of smoking and reasons to stop. 4. Chronic anxiety, depression. PLAN: Overall, patient has improved. She is still too weak to be able to discharge home. We will continue her current treatment. We will continue steroids at 40 IV q.8. Continue oxygen, breathing treatments, and will follow. cc: Oneil Camp MD
[2019-04-17] MEDS: SOLU-MEDROL IV SCH (05:20)
[2019-04-17] MEDS: INCRUSE ELLIPTA INH SCH (07:11)
[2019-04-17] MEDS: ADVAIR 500/50 DISKUS INH SCH (07:12)
[2019-04-17] MEDS: PROZAC PO SCH (09:02)
[2019-04-17] MEDS: XANAX PO SCH ×2 (09:02→18:11)
[2019-04-17] MEDS: OMNICEF PO SCH (09:02)
[2019-04-17 15:08] VITALS: BP 145/81
--- NOTE | 2019-04-18 12:47 | DISCHARGE SUMMARY ---
ADMISSION DATE: 04/12/2019 DISCHARGE DATE: 04/17/2019 SUBJECTIVE: The patient examined the day of discharge. She seems to be doing well. She is asking to go home. She feels strong enough to be able to go home. OBJECTIVE: Vital signs: Blood pressure 145/81, heart rate 80, respiratory rate 20, temperature 98.3 degrees, 97% on 3 L. Cardiovascular: Regular rate and rhythm. Pulmonary: Bilateral breath sounds clear to auscultation. Gastrointestinal: Soft, nontender, nondistended. Bowel sounds are positive. LABORATORY DATA: I do not have any new data today. [place] [id number] and that was 4 days ago, which she was on fairly high-dose steroids at that time. ASSESSMENT AND PLAN: In any case, the patient is improved. She has minimal wheezing. She is very motivated to go home. I do think she probably will qualify or need home oxygen. I do not have evidence of that right now. She is 91% on 3 L so I think she will qualify but I do not have all the data in order for that. We are looking at trying to get that set up prior to discharge, but other than that, patient is doing well. She is up and ambulating and patient is planned for discharge after we have set up home oxygen. She will be discharged on oral antibiotics and oral steroids. I have switched her lisinopril to losartan just because of the concern over cough. She is already on Advair. She is on Incruse and Ventolin inhaler, which I would recommend taking 4 times a day. TIME SPENT: A 32 minute discharge. Please see note per Kayce Pittman, and follow closely. cc: Jose Rea MD [facility]
--- NOTE | 2019-04-19 09:26 | DISCHARGE SUMMARY ---
ADMISSION DATE: 04/12/2019 DISCHARGE DATE: 04/17/2019 PRIMARY CARE PHYSICIAN: Dr. Delroy Sheikh at the [facility]. ADMISSION DIAGNOSES: 1. Chronic obstructive pulmonary disease exacerbation. 2. Anxiety and depression. 3. High cholesterol. DISCHARGE DIAGNOSES: 1. Chronic obstructive pulmonary disease exacerbation. 2. Anxiety and depression. 3. High cholesterol. SUMMARY OF FINDINGS: This is a 68-year-old female who presented with complaints of dyspnea and a productive cough of yellow to green sputum for the past week. Also, had some weakness and decreased mobility with pain to her back and throat area when coughing. She was noted to be in [place] visiting family there last week and went to the ER. They wanted to admit her but she left [place] to return to [place] so she could be seen by her regular doctors. States she is on home O2, and then greater than a year ago her home O2 was discontinued by her director financial systems. She had noted dyspnea at rest, even on her 2 L via nasal cannula. She was admitted, and placed on O2, DuoNeb's and steroids to taper. She was placed on pulmonary toilet. A repeat chest x-ray on 04/13/2019 that showed a stable chest. She was noted to only be saturating 91% on 3 L, and so she qualified for her home O2. She had been ambulating and was discharged on oral antibiotics and oral steroids. We switched her lisinopril to losartan due to the concern over her cough. DISCHARGE MEDICATIONS: 1. Ventolin inhaler 2 puff inhalation q.6 hours. 2. Lipitor 40 mg p.o. at bedtime. 3. A prescription of cefdinir 300 mg p.o. b.i.d. #14 with no refills. 4. Fenofibrate 145 mg p.o. at bedtime. 5. Prozac 40 mg p.o. b.i.d. 6. Losartan prescription 50 mg p.o. daily #30 with 1 refill. 7. Prednisone taper. 8. Incruse Ellipta 1 puff inhalation daily. FOLLOW-UP: She needs to follow up with her primary care physician in 1 to 2 weeks and, she will have oxygen through her [employer] company. TIME SPENT: This is a 33 minute discharge. Dictated by SEMAJ Negron for Jose Rea MD cc: SEMAJ eNgron MD [facility]
== END 2019-04-17 17:03 | disposition home or self-care (01) | DRG 192 ==
LOC: P.ED 09:30 → P.MEDSURG 09:30 → SUATTDRO 04-12 13:28 → P.MEDSURG 04-12 18:02
PROVIDERS: ATTEND Internal Medicine
CPT/HCPCS: 71010; 71045; 80048; 80053; 81001; 82465; 82550; 82805; 83605; 84484; 85025; 85610; 85730; 87070; 87205; 93005; 94640; 94761; 94799; 96374; 99285; A9270; J2543; J2920; J2930

== ENCOUNTER 2019-08-14 13:02 | Inpatient (IN) ==
--- NOTE | 2019-08-14 13:42 | Diag Imaging Result Doc PS360 ---
EXAM: CT HEAD W/O CONTRAST 08/14/2019 HISTORY: Fall TECHNIQUE: This exam was performed using automated exposure control, adjustment of mA or kV according to patient size, and/or use of iterative reconstruction technique. COMMENT: There is no evidence of mass effect, bleed, or abnormal extra-axial fluid collection. Compared to 12/08/2014 there has been no significant change. The calvarium is intact. The visualized paranasal sinuses are clear. IMPRESSION: No evidence of acute disease. Electronically signed by Shant Dumont 08/14/2019 1:40 PM
[2019-08-14 14:50] LABS: EOS# 0.01 X1000 (0.0-0.7); EOS% 0.1 % (0.0-10.0); HEMATOCRIT 37.2 % (37.0-47.0); HEMOGLOBIN 12.6 g/dL (12.0-16.0); IMM GRAN# 0.04 X1000 (0.0-0.04); IMM GRAN% 0.3 % (0.0-0.5); LYMPH% 8.2 % (20.5-51.1); MCH 28.2 PG (27-31); MCHC 33.9 g/dL (33-37); MCV 83.2 FL (81-99); MONO# 1.02 X1000 (0.11-0.59); MPV 10.1 FL (7.4-10.4); NEUT% 84.4 % (42.2-75.2); PLT 359 X1000 (130-400); RBC 4.47 XMIL (4.2-5.4); RDW 12.7 % (11.5-14.5); WBC 14.57 X1000 (4.8-10.8)
--- NOTE | 2019-08-14 15:10 | Diag Imaging Result Doc PS360 ---
EXAM: CHEST-1 VIEW 08/14/2019 HISTORY: near syncope TECHNIQUE: AP portable upright at 1431 COMMENT: The appearance of the chest has not changed significantly since 08/13/2019 considering differences in inspiration. IMPRESSION: Stable chest. Electronically signed by Shant Dumont 08/14/2019 3:08 PM
--- NOTE | 2019-08-14 15:27 | PROVIDER DOCUMENTATION ---
HPI-Abdominal Pain/GI Problem - General Chief Complaint: Fall Stated Complaint: fall Time Seen by Provider: 08/14/19 13:31 Allergies/Adverse Reactions: Patient Allergies Allergy/AdvReac Type Severity Reaction Status Date / Time No Known Allergies Allergy Verified 08/12/19 13:44 Home Medications: Home Medication List Medication Instructions Recorded Confirmed Last Taken Type Umeclidinium [place] [Incruse 1 puff IH DAILY 02/25/16 08/13/19 02/25/16 History Ellipta] Fluoxetine HCl [Prozac] 40 mg PO BID 10/07/16 08/14/19 Unknown History Albuterol Sulfate [Ventolin Hfa] 2 puff INH Q6H #1 hfa.aer.ad 04/17/19 08/14/19 Unknown Rx Betamethasone Dip 0.05% Cream 15 gm TOP DAILY #1 tube 06/28/19 08/14/19 Unknown Rx [Diprosone 0.05% Cream] Lamotrigine 1 tab PO DAILY 08/12/19 08/13/19 Unknown History Perphenazine 2 mg PO QHS 08/12/19 08/13/19 Unknown History Alprazolam 1 mg PO DAILY 08/13/19 08/14/19 Unknown History Atorvastatin Calcium [Lipitor] 80 mg PO DAILY 08/13/19 08/14/19 Unknown History Fenofibrate Nanocrystallized 145 mg PO QHS 08/13/19 08/14/19 Unknown History [Tricor] Dicyclomine [Bentyl] 20 mg PO TID PRN #20 cap 08/14/19 08/14/19 Unknown Rx Omeprazole 20 mg PO DAILY PRN 08/14/19 Unknown History Ondansetron [Ondansetron Odt] 4 mg PO Q8-12H PRN PRN #20 08/14/19 08/14/19 Unknown Rx tab.rapdis - History of Present Illness-ABD Nature of Presenting Problems: 68 YO F with ventral wall hernia s/p colostomy take down years ago presents for 5 days of n/v and abdominal pain/cramping. Pt has been seen at [facility] 4 times prior to this visit, she was just discharged this morning from [facility]. She has had a full workup 2 days [address] with abdominal CT just showing hernia and no obstruction. Pt has been having bowel movements. Per patient, she states the surgeons state her hernia is inoperable and she was told to return if she cannot keep anything down. This is why she presents again only hours after discharge. She states she was walking to her sofa from her kitchen, had severe abdominal pain and cramping associated with nausea which made her fall to her knees. She denies LOC or head trauma or fever. Abdominal Pain Onset Location: reports: epigastric, periumbilical Pain Radiation: reports: no radiation Quality of Pain: reports: cramping Severity in ED: reports: moderate Onset/Duration: reports: 5 days ago Timing: reports: still present, intermittent Activities at Onset: reports: none Exposure to sick contacts?: Yes Modifying Factors: improves with: nothing Associated Symptoms: reports: diarrhea. denies: chest pain, constipation, fever/chills, seizure, shortness of breath, sensory/motor loss Review of Systems - Adult - REVIEW OF SYSTEMS - ADULT Constitutional: denies: chills, fever Eyes: reports: no symptoms reported Ears, Nose, Mouth & Throat: reports: no symptoms reported Cardiovascular: denies: chest pain, edema Past History - Adult - PAST MEDICAL HISTORY-ADULT Review of Records: reports: Old Records Reviewed, Nursing Assessment Review, Medications Reviewed Major Childhood Illnesses: reports: denies history Cardiovascular: reports: HTN, hyperlipidemia Respiratory: reports: COPD Gastrointestinal: reports: cancer (colon), GERD, other (hernia) Obstetrical/Gynecological: reports: denies history Genitourinary: reports: denies history Musculoskeletal: reports: denies history Neurological: reports: denies history Psychiatric: reports: denies history Endocrine/Immune: reports: denies history Other Conditions: reports: denies history - PRIOR SURGERIES/PROCEDURES Surgical/Procedure History: reports: appendectomy, hysterectomy, other (colon resection with colostomy/ colostomy reversal; blood clots, throat, tumors) - IMMUNIZATION STATUS Childhood Immunizations: See Nurse Assessment Flu Vaccine: See Nurse Assessment - FAMILY HISTORY Family History: reviewed, not pertinent - SOCIAL HISTORY Smoking: cigarettes Physical Exam-General - PHYSICAL EXAM-ADULT Initial Vital Signs Reviewed: Yes - CONSTITUTIONAL General Appearance: alert, no apparent distress - EYES Eyes: PERRL/EOMI, pink conjunctivae - NECK Neck: full range of motion - RESPIRATORY Respiratory: lungs clear, normal breath sounds - CARDIOVASCULAR Cardiovascular: regular rate, rhythm, no edema - GASTROINTESTINAL (ABDOMEN) Abdominal Exam: hernia, mass, other (scar to left side of umbilicus). negative: guarding, rigid, rebound - MUSCULOSKELETAL Back Exam: normal inspection, no CVA tenderness, no vertebral tenderness Extremity: normal range of motion - SKIN Integumentary: normal turgor, warm/dry - NEUROLOGIC Neurologic: engineer internship II-XII nml as tested, no motor/sensory deficits - PSYCHIATRIC Psych/Mental Status: oriented x 3 Progress - PLAN OF CARE/RESULTS Progress/Plan/Lab Results: Vital Signs - 8 hr 08/14/19 13:54 08/14/19 13:58 Temperature 98 F Pulse Rate 75 78 Respiratory Rate 22 30 H Blood Pressure 151/84 151/84 O2 Sat by Pulse Oximetry 93 L 94 L Laboratory Results - last 24 hr 08/14/19 14:25 WBC 14.57 H RBC 4.47 Hgb 12.6 Hct 37.2 MCV 83.2 MCH 28.2 MCHC 33.9 RDW Std Deviation 12.7 Plt Count 359 MPV 10.1 Immature Gran % (Auto) 0.3 Neut % (Auto) 84.4 H Lymph % (Auto) 8.2 L [place] % (Auto) 7.0 Eos % (Auto) 0.1 Baso % (Auto) 0.0 Immature Gran # (Auto) 0.04 Neut # (Auto) 12.30 H Lymph # (Auto) 1.20 [place] # (Auto) 1.02 H Eos # (Auto) 0.01 Baso # (Auto) 0.00 Orders Category Date Time Status CHEST-1 VIEW [RAD] Stat Exams 08/14/19 14:[address] HEAD W/O CONTRAST [CT] Stat Exams 08/14/19 13:32 Completed CBC WITH ELECTRONIC DIFF [HEME] Stat Lab 08/14/19 14:25 Completed COMPREHENSIVE METABOLIC PANEL [CHEM] Stat Lab 08/14/19 14:25 Received TROPONIN T Stat Lab 08/14/19 14:25 Received TSH Stat Lab 08/14/19 14:25 Received URINALYSIS W/POSS RFLX CULT [URINALYSIS] Stat Lab 08/14/19 15:24 Ordered Result Diagrams: 08/14/19 14:25 08/14/19 14:25 - REASSESSMENT Reassessment #1 Time Reassessed: 16:01 Status: unchanged (labs showing hyponatremia and hypokalemia, will replace. plan for admission. jazmine) - CONSULTS/PCP/HOSPITALIST Notification #1 *Consult/PCP/Hospitalist*: Dr. Devlin Time Discussed: 15:59 Consult Disposition: Will see in ED Departure - Departure Date of Disposition Decision: 08/14/19 Time of Disposition Decision: 15:58 DIAGNOSIS: Hyponatremia, Hypokalemia, Nausea & vomiting, Abdominal hernia, Abdominal pain Disposition: ADMITTED INPATIENT 09 Certified Medical Emergency: Emergent Condition: Stable Referrals and Follow-Ups: None,PCP [Primary Care Provider] - - Critical Care Note This patient required my direct & personal management of CC.: No Attestation - Physician/ LAURENT Attestation The physician spent face to face time with patient:: Yes Advanced Practice Provider documentation review:: Supervising physician onsite and consulted in the evaluation and care of this patient. The physician did have a face to face encounter with the patient.
[2019-08-14 15:31] LABS: ESTIMATED GFR > 60
[2019-08-14 15:36] LABS: AGAP 15; ALBUMIN 4.2 g/dL (3.5-5.0); ALKALINE PHOSPHATASE 68 U/L (32-104); BUN 11 mg/dL (8-22); CALCIUM 8.3 mg/dL (8.8-10.2); CHLORIDE 82 mmol/L (98-107); COSMO 242; CREATININE 0.6 mg/dL (0.5-0.9); GLUCOSE 113 mg/dL (70-104); GOT 19 U/L (10-30); GPT 11 U/L (10-36); SODIUM 120 mmol/L (136-145); TCO2 23 mmol/L (25-35); TOTAL BILIRUBIN 0.91 mg/dL (0.20-1.00); TOTAL PROTEIN 6.3 g/dL (6.3-8.3)
[2019-08-14] MEDS ORDERED: NS 1,000 ML IV ONE (15:37)
[2019-08-14] MEDS ORDERED: KLOR-CON PO ONE (15:39)
[2019-08-14 15:44] LABS: URINE SOURCE CLEAN CATCH
[2019-08-14] MEDS ORDERED: ZOFRAN ODT PO ONE (15:49)
[2019-08-14 15:56] LABS: BILIRUBIN URINE NEGATIVE (NEGATIVE); BLOOD URINE SMALL (NEGATIVE); COLOR YELLOW; GLUCOSE URINE TRACE mg/dL (NEGATIVE); KETONE URINE 10 mg/dL (NEGATIVE); LEUKOCYTES URINE TRACE (NEGATIVE); NITRITE URINE NEGATIVE (NEGATIVE); PROTEIN URINE 30 mg/dL (NEGATIVE); SP GRAVITY URINE 1.031; TURBIDITY URINE CLEAR (CLEAR); UR EPITHELIAL CELLS <10 /HPF (<10); URINE BACTERIA NEGATIVE /HPF; URINE RBC <10 /HPF (<10); URINE WBC <10 /HPF (<10); UROBILINOGEN URINE NORMAL (NORMAL)
[2019-08-14] MEDS ORDERED: BENTYL PO ONE (15:56)
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
[2019-08-14] MEDS ORDERED: DUONEB (A & A) INH PRN (18:07)
[2019-08-14] MEDS ORDERED: TYLENOL PO PRN (18:07)
[2019-08-14] MEDS: SYMBICORT 80/4.5 MICROGM INHALER INH SCH (19:45)
[2019-08-14 20:55] LABS: POTASSIUM 3.4 mmol/L (3.5-5.1)
[2019-08-15] MEDS: BENTYL PO PRN ×2 (02:47→09:13)
[2019-08-15] MEDS: ZOFRAN IV PRN ×2 (02:47→06:34)
[2019-08-15] MEDS: TRICOR PO SCH ×2 (04:41→21:58)
[2019-08-15 07:47] LABS: EOS# 0.02 X1000 (0.0-0.7); EOS% 0.1 % (0.0-10.0); HEMATOCRIT 38.2 % (37.0-47.0); HEMOGLOBIN 13.3 g/dL (12.0-16.0); IMM GRAN# 0.03 X1000 (0.0-0.04); IMM GRAN% 0.2 % (0.0-0.5); LYMPH# 1.13 X1000 (1.2-3.4); LYMPH% 7.9 % (20.5-51.1); MCH 28.6 PG (27-31); MCHC 34.8 g/dL (33-37); MCV 82.2 FL (81-99); MONO# 1.11 X1000 (0.11-0.59); MONO% 7.7 % (1.7-9.3); MPV 10.3 FL (7.4-10.4); NEUT# 12.08 X1000 (1.4-6.5); NEUT% 84.1 % (42.2-75.2); PLT 371 X1000 (130-400); RBC 4.65 XMIL (4.2-5.4); RDW 12.7 % (11.5-14.5); WBC 14.37 X1000 (4.8-10.8)
[2019-08-15 08:18] LABS: AGAP 16; ALB/GLOB RATIO 1.7; ALBUMIN 4.3 g/dL (3.5-5.0); ALKALINE PHOSPHATASE 73 U/L (32-104); BUN 11 mg/dL (8-22); CALCIUM 8.5 mg/dL (8.8-10.2); CHLORIDE 84 mmol/L (98-107); COSMO 252; CREATININE 0.6 mg/dL (0.5-0.9); ESTIMATED GFR > 60; GLUCOSE 125 mg/dL (70-104); GOT 23 U/L (10-30); GPT 12 U/L (10-36); MAGNESIUM 1.5 mg/dL (1.5-2.7); POTASSIUM 2.7 mmol/L (3.5-5.1); SODIUM 125 mmol/L (136-145); TCO2 25 mmol/L (25-35); TOTAL BILIRUBIN 1.02 mg/dL (0.20-1.00); TOTAL PROTEIN 6.8 g/dL (6.3-8.3)
[2019-08-15] MEDS: SYMBICORT 80/4.5 MICROGM INHALER INH SCH ×2 (08:26→20:04)
[2019-08-15] MEDS: PROZAC PO SCH (09:12)
[2019-08-15] MEDS: LAMICTAL PO SCH (09:12)
[2019-08-15] MEDS: XANAX PO SCH (09:12)
--- NOTE | 2019-08-15 13:22 | Diag Imaging Result Doc PS360 ---
EXAM: ABDOMEN FLAT/UPRIGHT 08/15/2019 HISTORY: pain TECHNIQUE: Flat and upright abdomen COMMENT: There is a nonspecific bowel gas pattern. There is no evidence of obstruction organomegaly or mass. The appearance of the abdomen is similar to 08/13/2019. IMPRESSION: Nonspecific abdomen. Electronically signed by Shant Dumont 08/15/2019 1:19 PM
[2019-08-15] MEDS ORDERED: MAGNESIUM SULFATE 2 GM/S.W.I. 2 GM/50 ML IVPB IV ONE (13:52)
--- NOTE | 2019-08-15 14:35 | PROGRESS NOTE ---
DATE: 08/15/2019 SUBJECTIVE: Today, Ms. Daniel refers to be doing fairly okay. Still has some abdominal pain and some nauseation, but no vomiting. She also denies any bowel movements. OBJECTIVE: Vital signs: Blood pressure is 182/91, pulse of 75, respirations 19, and temperature 98.4 degrees. General: Ms. Daniel is a 68-year-old female. She is in bed in no distress. HEENT: Mucosa is pink and moist. Anicteric. Acyanotic. Neck: Supple. Chest: Air entry is bilaterally reduced. There is some end expiratory wheezing bilaterally. Cardiovascular: Regular rate and rhythm. Abdomen: Soft. Minimally tender on the left side. There is an old infraumbilical surgical scar. There is also some scar on the left side of the abdominal wall from previous colostomy at the colostomy site. There is also a bulging hernia defect around it. CREDIT ASSISTANT: Patient is awake, alert, and oriented. LABORATORY DATA: WBC 14.37. Rest of CBC is unremarkable. Chemistry is also reviewed. Sodium is 127, potassium is 2.7. Rest of chemistry is unremarkable. ASSESSMENT: 1. Nausea and vomiting associated with abdominal pain at home. So far, the KUB and CT scans have been unremarkable. We will continue treating this symptomatically. 2. Hyponatremia, etiology is unknown. It seems to be multifactorial in etiology. The patient was on numerous psychotropic medications that could potentially put her in SIADH. However, the chloride is also low, and she has been vomiting so there is a high probability that she could also be volume contracted. I think it is reasonable to give her a fluid challenge and see where we are. 3. Generalized weakness associated with multiple falls at home. We will get physical therapy to work with her. 4. COPD with mild bronchospasm. We will continue using nebulizations. 5. Hypokalemia. We will replace. cc: Kaleb Jefferson MD
[2019-08-15] MEDS: PRILOSEC PO SCH ×2 (15:03→15:04)
[2019-08-15] MEDS: POTASSIUM CHLORIDE 20 MEQ/SWI 20 MEQ/100 ML IVPB IV SCH ×2 (15:03→19:27)
[2019-08-15] MEDS: NS 1,000 ML IV SCH (15:03)
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
--- NOTE | 2019-08-15 16:42 | ECHO REPORT ---
ORDER DATE: 08/14/2019 INTERPRETING PHYSICIAN: Faisal Kat MD. CLINICAL INDICATIONS: Dyspnea. M-MODE MEASUREMENTS: Left ventricle end diastole: 5.2 cm. Left ventricle end systole: 3.5 cm. Posterior wall: 1.0 cm. Interventricular septum: 1.1 cm. Left atrium: 3.6 cm. Aortic diameter: 3.3 cm. SUMMARY OF 2-DIMENSIONAL IMAGIN. The left ventricular chamber is probably mildly enlarged. There is borderline concentric LVH. The study is difficult. There is subtle hypokinesis of the interventricular septum. Ejection fraction appears to be in the order of 50% to 55%. 2. The mitral valve looks grossly normal. Color flow mapping unremarkable. 3. Pulsed wave Doppler of mitral inflow shows mild reversal of the E and the A ratio. Ratio is 0.8. 4. Tissue Doppler of septal and lateral mitral annulus averages 6 cm. There is probably borderline diastolic dysfunction. 5. The aortic valve opens normal. Color flow mapping unremarkable. 6. The pulmonic valve was not well visualized. 7. The tricuspid valve shows no significant regurgitation. Pulmonary pressure is estimated at 46 to 51 mmHg. 8. There is a tiny pericardial effusion. There is no mass, and no thrombus. IN SUMMARY: The study was difficult. The global left ventricular systolic function is probably mildly decreased, estimated roughly at 50% to 55% with question of either hypokinesis or paradoxical motion of the interventricular septum. Again, this is very subtle. A trivial pericardial effusion appears to be present. There is mild enlargement of the inferior vena cava. Pulmonary pressure is estimated at 51 mmHg. There is very mild degree of mitral and tricuspid regurgitation. Clinical correlation is recommended. cc: Faisal Kat MD [facility]
[2019-08-15] MEDS: LIPITOR PO SCH (21:58)
[2019-08-16] MEDS: PRILOSEC PO SCH (06:52)
[2019-08-16 07:17] LABS: BASO# 0.01 X1000 (0.0-0.2); BASO% 0.1 % (0.0-0.8); EOS# 0.08 X1000 (0.0-0.7); EOS% 0.8 % (0.0-10.0); HEMATOCRIT 38.2 % (37.0-47.0); IMM GRAN# 0.03 X1000 (0.0-0.04); IMM GRAN% 0.3 % (0.0-0.5); LYMPH# 0.98 X1000 (1.2-3.4); LYMPH% 9.3 % (20.5-51.1); MCH 28.6 PG (27-31); MCV 84.1 FL (81-99); MONO# 0.95 X1000 (0.11-0.59); MONO% 9.1 % (1.7-9.3); MPV 10.1 FL (7.4-10.4); NEUT# 8.44 X1000 (1.4-6.5); NEUT% 80.4 % (42.2-75.2); PLT 328 X1000 (130-400); RBC 4.54 XMIL (4.2-5.4); RDW 12.8 % (11.5-14.5); WBC 10.49 X1000 (4.8-10.8)
[2019-08-16 07:50] LABS: AGAP 14; ALBUMIN 3.6 g/dL (3.5-5.0); BUN 9 mg/dL (8-22); CALCIUM 8.2 mg/dL (8.8-10.2); CHLORIDE 93 mmol/L (98-107); COSMO 265; CREATININE 0.6 mg/dL (0.5-0.9); ESTIMATED GFR > 60; GLUCOSE 122 mg/dL (70-104); PHOSPHORUS 2.4 mg/dL (2.7-4.5); POTASSIUM 3.3 mmol/L (3.5-5.1); SODIUM 132 mmol/L (136-145); TCO2 25 mmol/L (25-35)
[2019-08-16] MEDS: SYMBICORT 80/4.5 MICROGM INHALER INH SCH ×2 (08:14→19:28)
[2019-08-16] MEDS ORDERED: POTASSIUM PHOSPHATE 40 MEQ in NS 250 ML IV ONE (08:51)
[2019-08-16] MEDS: XANAX PO SCH (09:55)
[2019-08-16] MEDS: NS 1,000 ML IV SCH (09:55)
[2019-08-16] MEDS: LAMICTAL PO SCH (09:55)
[2019-08-16] MEDS: PROZAC PO SCH (09:55)
--- NOTE | 2019-08-16 18:44 | GASTROENTEROLOGY PROGRESS NOTE ---
DATE: 08/16/2019 SUBJECTIVE: Patient states she is feeling better. She is more awake today. She is sitting up in a chair. She has denied any further nausea or vomiting. She reported having some abdominal pain that she feels is related to a hernia from her colon resection and history of colostomy and then reversal. She had had some exacerbation of her COPD and was having a lot of coughing. Her GI symptoms have improved. OBJECTIVE: Vital signs: Temperature 98.6 degrees, pulse 70 respirations 14 blood pressure 165/84. General: The patient is awake and alert, sitting up in a chair in no acute distress. LABORATORY: Hematology: WBC 10.49 hemoglobin 13.0, hematocrit 38.2, platelets 328,000. Chemistry: Sodium 132 potassium 3.3, chloride 93, CO2 of 25, BUN 9, creatinine 0.6, glucose 122. ASSESSMENT AND PLAN: 1. Nausea and vomiting have improved. 2. Hyponatremia has improved. 3. Hypokalemia, improved. 4. History of colon cancer status post resection. 5. History of colostomy and then reversal. Patient states it has been a long time since her last colonoscopy. She did not know the actual year. She had followed with a doctor in [place]. She wanted to see a doctor here locally. I have given her our contact information. She actually wanted me to go ahead and make her an office visit appointment so I have done that for her and given her the information. We will continue to follow during the hospital course. Further plans will be made according to her progress. I have discussed this case with Dr. Estrella. Dictated by SEMAJ Russo for Jimmy Estrella MD cc: SEMAJ Islas MD
--- NOTE | 2019-08-16 19:56 | PROGRESS NOTE ---
DATE: 08/16/2019 SUBJECTIVE: This morning Mr. Daniel refers to be doing a lot better. Denies any new complaints. OBJECTIVE: Vital Signs: Blood pressure was 141/77, pulse of 71, respirations 19, temperature 99.0 degrees. General: Ms. Daniel is a 68-year-old female. She is in bed in no distress. Mucosa is pink and moist. Anicteric. Acyanotic. Neck: Supple. Chest: Clear to auscultation. Cardiovascular: Regular rate and rhythm. Abdomen: Was soft. There is an old infraumbilical surgical scar. There is also some scar on the left side of the abdominal wall from previous colostomy site. There is some hernia defect at that site. TIMEKEEPING SUPERVISOR: Patient is awake, alert, and oriented. LABORATORY DATA: WBC is down to 10.49, hemoglobin is 13.0, platelet count of 328,000. Chemistry is also reviewed. Sodium is up to 132. Potassium is 3.3. And phosphorus is 2.4. CURRENT MEDICATIONS: Have all been reviewed. ASSESSMENT: 1. Nausea and vomiting on presentation with unremarkable KUB and CT scan. 2. As per patient, is currently asymptomatic. 3. Hyponatremia, improving with fluids. It appears to be multifactorial including hypovolemic hyponatremia. We will continue with the gentle hydration to get her euvolemic and then address the other possible etiologies. 4. Generalized weakness associated with multiple falls. Physical therapy is on board. 5. Chronic obstructive pulmonary disease with mild bronchospasm, improved. 6. Electrolyte abnormalities including hypokalemia and hypophosphatemia. We will continue to replace. cc: Kaleb Jefferson MD
[2019-08-16] MEDS: TRICOR PO SCH (20:43)
[2019-08-16] MEDS: LIPITOR PO SCH (20:43)
[2019-08-17] MEDS: NS 1,000 ML IV SCH ×2 (04:37→08:08)
[2019-08-17] MEDS: PRILOSEC PO SCH (06:23)
[2019-08-17 07:46] LABS: AGAP 10; ALBUMIN 3.6 g/dL (3.5-5.0); BUN 12 mg/dL (8-22); CALCIUM 8.2 mg/dL (8.8-10.2); CHLORIDE 102 mmol/L (98-107); COSMO 279; CREATININE 0.7 mg/dL (0.5-0.9); ESTIMATED GFR > 60; GLUCOSE 100 mg/dL (70-104); PHOSPHORUS 3.5 mg/dL (2.7-4.5); POTASSIUM 3.1 mmol/L (3.5-5.1); SODIUM 140 mmol/L (136-145); TCO2 28 mmol/L (25-35)
[2019-08-17] MEDS: SYMBICORT 80/4.5 MICROGM INHALER INH SCH (07:47)
[2019-08-17] MEDS ORDERED: KLOR-CON PO ONE (08:48)
[2019-08-17] MEDS: LAMICTAL PO SCH (09:35)
[2019-08-17] MEDS: XANAX PO SCH (09:35)
[2019-08-17] MEDS: PROZAC PO SCH (09:35)
[2019-08-17 11:39] VITALS: BP 166/81
--- NOTE | 2019-08-18 13:38 | DISCHARGE SUMMARY ---
ADMISSION DATE: 08/14/2019 DISCHARGE DATE: 08/17/2019 DISPOSITION: Home. FOLLOW-UP: 1. Jean Villafana. 2. Dr. Perdue from [facility]. CONSULTATION DURING THIS ADMISSION: GI was consulted. Patient was seen by Dr. Guadarrama. INVASIVE PROCEDURES DONE DURING THIS ADMISSION: None. IMAGING STUDIES OF SIGNIFICANCE: A CT scan of the head without contrast showed no evidence of acute disease. A chest x-ray shows stable chest, no pathology. Echocardiogram showed an ejection fraction of 50 to 55 percent, question of either hypokinesis or paradoxical motion of the interventricular septum. Again, this was said to be very subtle. A trivial pericardial effusion appears to be present. There was mild enlargement of the inferior vena cava. The pulmonary pressure was 51 mmHg. A KUB showed nonspecific abdomen. ADMISSION DIAGNOSIS: 1. Hyponatremia. 2. Nausea, vomiting. 3. History of depression. 4. COPD. DIAGNOSIS AT THE TIME OF DISCHARGE: 1. Nausea and vomiting on presentation, resolved. The patient had an unremarkable KUB. 2. 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 3. Generalized weakness associated with multiple falls, presumably due to electro mineral abnormalities. 4. Chronic obstructive pulmonary disease in mild exacerbation. 5. Electrolyte abnormality [hypokalemia, hypophosphatemia and hyponatremia were all improved]. 6. Multiple psychotropic medications. The patient has been advised to follow up with her mental health team to re-evaluate the need for each 1 of her medications. PRESENTING COMPLAIN: Nausea and vomiting. HISTORY OF PRESENTING COMPLAINT: Ms. Daniel is a 68-year-old female who is known to have depression, bipolar type 1, also history of psoriasis, COPD supposed to be on oxygen, and tobacco use, came to the emergency department because of multiple falls, generalized weakness, some nausea and vomiting. Upon presenting to the emergency department, she was evaluated. Initial CT scan of the head was unremarkable. A CT chest x-ray was also unremarkable. A KUB was also unremarkable. Ms. Daniel was found to have a sodium level of 120. Her chloride was also 82. She looks remarkably dry, so she was started on gentle IV hydration progressively. Her electrolyte abnormality got better. Today, her sodium is 140. Her chloride is 120, normal acid- base and her phosphorus is up to 3.5. Ms. Daniel has also been able to work with physical therapy yesterday. She was able to do about 50 feet with contact guard assist front wheel walker. She feels remarkably stronger today. Ms. Daniel is found to be on multiple psychotropic medications which I think the combination of them could first of all, make her remarkably drowsy and predispose her to falls and also some of them could potentially cause SIADH, lower the sodium, and increase her fall risk. She has been advised to follow up with her mental health team to re-evaluate the need to be on all those medications. She voiced understanding. Today Ms. Daniel refers to feel a lot better. She feels stronger. She has been up. She has gone to use the restroom herself. She does not feel any weaker and she denies any nausea and vomiting. We think she is clinically stable for discharge. DISCHARGE VITALS: Blood pressure is 166/81, pulse is 71, respiration is 18, temperature 97.7 degrees. Patient was saturating 96% on room air. Physical exam is fairly unremarkable. She is being discharged in stable condition. At the time of the discharge, there were no pending labs or imaging studies. TIME SPENT FOR DISCHARGE: 37 minutes. cc: MD Jean Knapp
== END 2019-08-17 13:50 | disposition home or self-care (01) | DRG 644 ==
LOC: SUPCPDRO → ED 13:02 → SUATTDRO 17:47 → 3N 17:47
PROVIDERS: ATTEND Internal Medicine

== ENCOUNTER 2019-11-13 18:36 | Inpatient (IN) ==
--- NOTE | 2019-11-13 19:34 | Diag Imaging Result Doc PS360 ---
CHEST-1 VIEW - 11/13/2019 INDICATION: sob/sepsis protocol COMPARISON: 11/12/2019 FINDINGS: Stable hyperexpanded lungs indicating COPD. Heart size is top normal. There are probably trace pleural effusions. There are stable increased markings in the lung bases suggesting mild pulmonary edema or fibrosis. IMPRESSION: No change from prior. Electronically signed by Luis Fernando Overton 11/13/2019 7:32 PM
[2019-11-13 19:39] LABS: ALLEN TEST YES; BE -2.9 mmoll (-3.0-3.0); BLOOD TYPE ARTERIAL; HCO3-(ACT) 22.5 mmoll (20.0-26.0); METHB 1.3 % (0.0-1.5); O2(CT) 18.5 mL/dL (15.0-23.0); O2HB 90.8 % (95.0-99.0); PCO2(98.6) 41 mmHg (35-45); PO2(98.6) 65 mmHg (60-100); SAMPLE BLOOD; SAO2 94.7 % (95.0-100.0); THB 14.5 g/dL (11.5-17.4); pH(98.6) 7.35 (7.35-7.45)
[2019-11-13 19:40] LABS: MODALITY CANNULA
[2019-11-13] MEDS ORDERED: SOLU-MEDROL IV ONE (20:01)
[2019-11-13] MEDS ORDERED: DUONEB (A & A) INH ONE (20:01)
[2019-11-13 20:37] LABS: BASO# 0.01 X1000 (0.0-0.2); BASO% 0.1 % (0.0-0.8); EOS# 0.01 X1000 (0.0-0.7); EOS% 0.1 % (0.0-10.0); HEMATOCRIT 41.5 % (37.0-47.0); IMM GRAN# 0.04 X1000 (0.0-0.04); IMM GRAN% 0.3 % (0.0-0.5); LYMPH# 0.53 X1000 (1.2-3.4); LYMPH% 3.7 % (20.5-51.1); MCH 28.6 PG (27-31); MCHC 33.7 g/dL (33-37); MCV 84.9 FL (81-99); MONO# 1.31 X1000 (0.11-0.59); MPV 9.8 FL (7.4-10.4); NEUT# 12.62 X1000 (1.4-6.5); NEUT% 86.8 % (42.2-75.2); PLT 286 X1000 (130-400); PROTIME 13.3 Seconds (11.0-16.0); RBC 4.89 XMIL (4.2-5.4); RDW 13.6 % (11.5-14.5); WBC 14.52 X1000 (4.8-10.8)
[2019-11-13 20:38] LABS: PTT 24.4 Seconds (22.3-41.8)
[2019-11-13 20:56] LABS: URINE SOURCE CLEAN CATCH
[2019-11-13 21:06] LABS: BILIRUBIN URINE NEGATIVE (NEGATIVE); BLOOD URINE NEGATIVE (NEGATIVE); COLOR YELLOW; GLUCOSE URINE NEGATIVE (NEGATIVE); KETONE URINE NEGATIVE (NEGATIVE); LEUKOCYTES URINE NEGATIVE (NEGATIVE); NITRITE URINE NEGATIVE (NEGATIVE); PROTEIN URINE TRACE mg/dL (NEGATIVE); SP GRAVITY URINE 1.018; TURBIDITY URINE CLEAR (CLEAR); UR EPITHELIAL CELLS <10 /HPF (<10); URINE BACTERIA NEGATIVE /HPF; URINE RBC <10 /HPF (<10); URINE WBC <10 /HPF (<10); UROBILINOGEN URINE NORMAL (NORMAL)
[2019-11-13 21:19] LABS: ESTIMATED GFR > 60
[2019-11-13 21:21] LABS: AGAP 16; ALB/GLOB RATIO 2.3; ALBUMIN 4.5 g/dL (3.5-5.0); ALKALINE PHOSPHATASE 76 U/L (32-104); BUN 14 mg/dL (8-22); CALCIUM 9.2 mg/dL (8.8-10.2); CHLORIDE 86 mmol/L (98-107); CK PROFILE 70 U/L (24-173); COSMO 252; CREATININE 0.7 mg/dL (0.5-0.9); GLUCOSE 130 mg/dL (70-104); GOT 17 U/L (10-30); GPT 12 U/L (10-36); POTASSIUM 3.7 mmol/L (3.5-5.1); SODIUM 124 mmol/L (136-145); TCO2 22 mmol/L (25-35); TOTAL BILIRUBIN 0.38 mg/dL (0.20-1.00); TOTAL PROTEIN 6.5 g/dL (6.3-8.3)
--- NOTE | 2019-11-13 22:44 | PROVIDER DOCUMENTATION ---
This chart was entered by Katerin Espana Scribe, acting as scribe for Marty Seo MD. HPI-Rash/Wound/ReCheck - General Chief Complaint: SEPSIS ALERT - D Stated Complaint: SOB Time Seen by Provider: 11/13/19 19:28 Source: patient, RN/MD Allergies/Adverse Reactions: Allergies Allergy/AdvReac Type Severity Reaction Status Date / Time No Known Allergies Allergy Verified 11/13/19 19:44 Home Medications: Home Medication List Medication Instructions Recorded Confirmed Last Taken Type Umeclidinium [place] [Incruse 1 puff IH DAILY 02/25/16 08/13/19 02/25/16 History Ellipta] Fluoxetine HCl [Prozac] 40 mg PO BID 10/07/16 08/14/19 Unknown History Albuterol Sulfate [Ventolin Hfa] 2 puff INH Q6H #1 hfa.aer.ad 04/17/19 08/14/19 Unknown Rx Betamethasone Dip 0.05% Cream 15 gm TOP DAILY #1 tube 06/28/19 08/14/19 Unknown Rx [Diprosone 0.05% Cream] Perphenazine 2 mg PO QHS 08/12/19 08/13/19 Unknown History Alprazolam 1 mg PO DAILY 08/13/19 08/14/19 Unknown History Atorvastatin Calcium [Lipitor] 80 mg PO DAILY 08/13/19 08/14/19 Unknown History Fenofibrate Nanocrystallized 145 mg PO QHS 08/13/19 08/14/19 Unknown History [Tricor] Dicyclomine [Bentyl] 20 mg PO TID PRN #20 cap 08/14/19 08/14/19 Unknown Rx Omeprazole 20 mg PO DAILY PRN 08/14/19 Unknown History Ondansetron [Ondansetron Odt] 4 mg PO Q8-12H PRN PRN #20 08/14/19 08/14/19 Unknown Rx tab.rapdis Budesonide/Formoterol Inhaler 2 puff INH RTBID inhaler 08/17/19 Unknown Rx [Symbicort 80/4.5 Microgm Inhaler] Lamotrigine 1 tab PO DAILY #0 08/17/19 08/13/19 Unknown Rx Potassium Chloride [Klor-Con 10] 10 meq PO DAILY #30 tablet.er 08/17/19 Unknown Rx Methylprednisolone [Medrol Dosepak] 4 mg PO DIRECTED #1 pkg 11/12/19 Unknown Rx - History of Present Illness-Dermatology Nature of Presenting Problem: pt is a 69 yowf c/o worsening sob, nausea and orthopnea. pt arrived via ems, was given nebulizer enroute. pt was seen in er last night for copd exacerbation. labs, xray were good, pt was walked in er an o2 was 92% pt was on home o2 and told to call pcp today to get back on o2. pt is a smoker but has not smoked today. - Recheck Treated days ago.: 1 Previous Treatment: other Symptoms since procedure:: reports: other (worsening sob, nausea) Review of Systems - Adult - REVIEW OF SYSTEMS - ADULT Constitutional: reports: no symptoms reported. denies: chills, fever, fatique Eyes: reports: no symptoms reported Ears, Nose, Mouth & Throat: reports: no symptoms reported Cardiovascular: reports: see HPI, orthopnea. denies: chest pain, irregular heart rate, palpitations Respiratory: reports: see HPI, shortness of breath. denies: cough, hemoptysis, pleurisy Gastrointestinal: reports: see HPI, nausea. denies: abdominal pain, diarrhea, vomiting Genitourinary: reports: no symptoms reported Musculoskeletal: reports: no symptoms reported Integumentary: reports: no symptoms reported Neurological: reports: no symptoms reported Psychiatric: reports: no symptoms reported Endocrine: reports: no symptoms reported Hematologic/Lymphatic: reports: no symptoms reported Allergic/Immunologic: reports: no symptoms reported All Other Systems: Reviewed and Negative Past History - Adult - PAST MEDICAL HISTORY-ADULT Review of Records: reports: Nursing Assessment Review, Medications Reviewed, Social history reviewed & non-contributory. Major Childhood Illnesses: reports: denies history Cardiovascular: reports: HTN, hyperlipidemia Respiratory: reports: COPD Gastrointestinal: reports: cancer (colon), GERD, other (hernia) Obstetrical/Gynecological: reports: denies history Genitourinary: reports: denies history Musculoskeletal: reports: denies history Neurological: reports: denies history Psychiatric: reports: anxiety, depression Endocrine/Immune: reports: denies history Other Conditions: reports: denies history - PRIOR SURGERIES/PROCEDURES Surgical/Procedure History: reports: appendectomy, hysterectomy, other (colon resection with colostomy/ colostomy reversal; blood clots, throat, tumors) - IMMUNIZATION STATUS Childhood Immunizations: See Nurse Assessment Flu Vaccine: See Nurse Assessment - FAMILY HISTORY Family History: reviewed, not pertinent - SOCIAL HISTORY Smoking: cigarettes, greater than 1 pack/day Provider spent 3-5 mins advising pt. on dangers of tobacco.: Discussed manners to quit use, and f/u contacts for add'l counseling. Substance Use: none/never Physical Exam-General - PHYSICAL EXAM-ADULT Initial Vital Signs Reviewed: Yes - CONSTITUTIONAL General Appearance: alert, mild distress. negative: lethargic, slow to respond, obtunded - EYES Eyes: PERRL/EOMI, pink conjunctivae - HEAD, EARS, NOSE, MOUTH & THROAT HENMT: normocephalic/atraumatic, moist mucous membranes - NECK Neck: non-tender, full range of motion, supple, normal inspection - RESPIRATORY Respiratory: chest non-tender, lungs clear, normal breath sounds, no pleuratic chest pain, no respiratory distress, no accessory muscle use. negative: rhonchi, stridor, wheezing, prolonged expiration - CARDIOVASCULAR Cardiovascular: normal peripheral pulses, regular rate, rhythm - GASTROINTESTINAL (ABDOMEN) Abdominal Exam: normal bowel sounds, non tender, soft - MUSCULOSKELETAL Back Exam: normal inspection Extremity: normal range of motion, non-tender, normal inspection - SKIN Integumentary: normal color, normal turgor, warm/dry - NEUROLOGIC Neurologic: grossly normal, no motor/sensory deficits - PSYCHIATRIC Psych/Mental Status: normal mood/affect, normal thought content, normal thought process, oriented x 3 Progress - PLAN OF CARE/RESULTS Progress/Plan/Lab Results: Vital Signs - 8 hr 11/13/19 19:02 11/13/19 19:03 11/13/19 19:09 Temperature 97.5 F L Pulse Rate 111 H Respiratory Rate 34 H Blood Pressure 134/94 134/96 O2 Sat by Pulse Oximetry 97 96 11/13/19 19:15 11/13/19 19:16 11/13/19 19:30 Temperature Pulse Rate 104 H 98 H 105 H Respiratory Rate 35 H 31 H 26 H Blood Pressure 151/89 O2 Sat by Pulse Oximetry 94 L 94 L 92 L 11/13/19 19:31 11/13/19 19:45 11/13/19 19:46 Temperature Pulse Rate 105 H 112 H 114 H Respiratory Rate 40 H 21 34 H Blood Pressure 127/94 135/80 O2 Sat by Pulse Oximetry 93 L 92 L 93 L 11/13/19 20:00 11/13/19 20:01 11/13/19 20:15 Temperature Pulse Rate 110 H 96 H 94 H Respiratory Rate 28 H 24 32 H Blood Pressure 120/67 O2 Sat by Pulse Oximetry 90 L 91 L 91 L 11/13/19 20:16 11/13/19 20:45 Temperature Pulse Rate 97 H 88 Respiratory Rate 38 H 19 Blood Pressure 125/72 O2 Sat by Pulse Oximetry 91 L Laboratory Results - last 24 hr 11/13/19 11/13/19 11/13/19 19:29 20:10 20:10 WBC 14.52 H RBC 4.89 Hgb 14.0 Hct 41.5 MCV 84.9 MCH 28.6 MCHC 33.7 RDW Std Deviation 13.6 Plt Count 286 MPV 9.8 Immature Gran % (Auto) 0.3 Neut % (Auto) 86.8 H Lymph % (Auto) 3.7 L U[place] % (Auto) 9.0 Eos % (Auto) 0.1 Baso % (Auto) 0.1 Immature Gran # (Auto) 0.04 Neut # (Auto) 12.62 H Lymph # (Auto) 0.53 L Upton # (Auto) 1.31 H Eos # (Auto) 0.01 Baso # (Auto) 0.01 PT INR PTT (Actin FS) Specimen Type ARTERIAL Sample Site R RADIAL pH 7.35 pCO2 41 pO2 65 HCO3 22.5 Base Excess -2.9 Oxyhemoglobin 90.8 L ABG O2 Sat (Calculated) 18.5 ABG O2 Saturation 94.7 L ABG Carboxyhemoglobin 2.80 H ABG Methemoglobin 1.3 Hal Test YES A-a O2 Difference 112.0 Total Hemoglobin 14.5 Lactate 1.10 Liter Flow 3.0 Blood Gas Modality CANNULA FiO2 % 32.0 Sodium Potassium Chloride Carbon Dioxide Anion Gap BUN Creatinine Estimated GFR/1.73 m2 BUN/Creatinine Ratio Glucose Calculated Osmolality Calcium Total Bilirubin AST ALT Alkaline Phosphatase Creatine Kinase Troponin T Total Protein Albumin Globulin Albumin/Globulin Ratio Plasma Lactate 1.0 Urine Source Urine Color Urine Turbidity Urine pH Ur Specific Dawson Urine Protein Ur Glucose (Stick) Ur Ketones (Stick) Urine Blood Urine Nitrite Urine Bilirubin Urobilinogen Dipstick Urine Leukocytes Urine WBC (Auto) Urine RBC (Auto) U Epithel Cells (Auto) Urine Bacteria (Auto) 11/13/19 11/13/19 11/13/19 20:10 20:10 20:10 WBC RBC Hgb Hct MCV MCH MCHC RDW Std Deviation Plt Count MPV Immature Gran % (Auto) Neut % (Auto) Lymph % (Auto) Upton % (Auto) Eos % (Auto) Baso % (Auto) Immature Gran # (Auto) Neut # (Auto) Lymph # (Auto) Upton # (Auto) Eos # (Auto) Baso # (Auto) PT 13.3 INR 1.00 PTT (Actin FS) 24.4 Specimen Type Sample Site pH pCO2 pO2 HCO3 Base Excess Oxyhemoglobin ABG O2 Sat (Calculated) ABG O2 Saturation ABG Carboxyhemoglobin ABG Methemoglobin Hal Test A-a O2 Difference Total Hemoglobin Lactate Liter Flow Blood Gas Modality FiO2 % Sodium 124 L Potassium 3.7 Chloride 86 L Carbon Dioxide 22 L Anion Gap 16 BUN 14 Creatinine 0.7 Estimated GFR/1.73 m2 > 60 BUN/Creatinine Ratio 20 Glucose 130 H Calculated Osmolality 252 Calcium 9.2 Total Bilirubin 0.38 AST 17 ALT 12 Alkaline Phosphatase 76 Creatine Kinase 70 Troponin T < 0.010 Total Protein 6.5 Albumin 4.5 Globulin 2.0 Albumin/Globulin Ratio 2.3 Plasma Lactate Urine Source Urine Color Urine Turbidity Urine pH Ur Specific Dawson Urine Protein Ur Glucose (Stick) Ur Ketones (Stick) Urine Blood Urine Nitrite Urine Bilirubin Urobilinogen Dipstick Urine Leukocytes Urine WBC (Auto) Urine RBC (Auto) U Epithel Cells (Auto) Urine Bacteria (Auto) 11/13/19 20:52 WBC RBC Hgb Hct MCV MCH MCHC RDW Std Deviation Plt Count MPV Immature Gran % (Auto) Neut % (Auto) Lymph % (Auto) Upton % (Auto) Eos % (Auto) Baso % (Auto) Immature Gran # (Auto) Neut # (Auto) Lymph # (Auto) Upton # (Auto) Eos # (Auto) Baso # (Auto) PT INR PTT (Actin FS) Specimen Type Sample Site pH pCO2 pO2 HCO3 Base Excess Oxyhemoglobin ABG O2 Sat (Calculated) ABG O2 Saturation ABG Carboxyhemoglobin ABG Methemoglobin Hal Test A-a O2 Difference Total Hemoglobin Lactate Liter Flow Blood Gas Modality FiO2 % Sodium Potassium Chloride Carbon Dioxide Anion Gap BUN Creatinine Estimated GFR/1.73 m2 BUN/Creatinine Ratio Glucose Calculated Osmolality Calcium Total Bilirubin AST ALT Alkaline Phosphatase Creatine Kinase Troponin T Total Protein Albumin Globulin Albumin/Globulin Ratio Plasma Lactate Urine Source CLEAN CATCH Urine Color YELLOW Urine Turbidity CLEAR Urine pH 6.0 Ur Specific Dawson 1.018 Urine Protein TRACE A Ur Glucose (Stick) NEGATIVE Ur Ketones (Stick) NEGATIVE Urine Blood NEGATIVE Urine Nitrite NEGATIVE Urine Bilirubin NEGATIVE Urobilinogen Dipstick NORMAL Urine Leukocytes NEGATIVE Urine WBC (Auto) <10 Urine RBC (Auto) <10 U Epithel Cells (Auto) <10 Urine Bacteria (Auto) NEGATIVE Orders Category Date Time Status Cardiac Monitoring DIRECTED Care 11/13/19 19:12 Active IV Insertion ORDERED Care 11/13/19 19:12 Completed Notify MD of + Sepsis Screen NOW Care 11/13/19 19:12 Active Notify Physician As Ordered Care 11/13/19 19:12 Active CHEST-1 VIEW [RAD] Stat Exams 11/13/19 19:12 Completed ABG [RESP] Routine Lab 11/13/19 19:29 Completed BLOOD CULTURE [BLDCUL] Stat Lab 11/13/19 21:01 Results CBC WITH DIFF [HEME] Stat Lab 11/13/19 20:10 Completed CK PROFILE [SP CHEM] Stat Lab 11/13/19 20:10 Completed COMPREHENSIVE METABOLIC PANEL [CHEM] Stat Lab 11/13/19 20:10 Completed LACTATE, PLASMA [CHEM] Lab 11/13/19 22:15 Uncollected LACTATE, PLASMA [CHEM] Lab 11/14/19 01:15 Uncollected LACTATE, PLASMA [CHEM] Q3H Lab 11/13/19 20:10 Completed PROTIME WITH INR [COAG] Stat Lab 11/13/19 20:10 Completed PTT [COAG] Stat Lab 11/13/19 20:10 Completed TROPONIN T Stat Lab 11/13/19 20:10 Completed URINALYSIS W/POSS RFLX CULT [URINALYSIS] Stat Lab 11/13/19 20:52 Completed Albuterol 2.5MG/Ipratrop 0.5MG [Duoneb (A & A)] Med 11/13/19 20:01 Discontinued 3 ml INH NOW ONE Methylprednisolone Sod Succ [Solu-Medrol] Med 11/13/19 20:01 Discontinued 125 mg IV NOW ONE Aerosol Treatments Routine Oth 11/13/19 20:01 Completed Aerosol Treatments Stat Oth 11/13/19 20:01 Completed Oxygen Device Stat Oth 11/13/19 19:12 Completed Result Diagrams: 11/13/19 20:10 11/13/19 20:10 - EKG 1 Time of EKG reading by physician:: 19:48 EKG Read and Signed by:: Marty Seo EKG Interpretation (*Must complete 3 of following elements*): Abnormal Rate: 116 Rhythm: ST Ellinger: normal QRS: normal MO Interval: normal ST Wave: normal, non-specific ST changes (Nonspecific T wave abnormality) - XRAY 1 XRAY Study: Chest Impression: Normal, See EMR Report ( CHEST-1 VIEW - 11/13/2019 INDICATION: sob/sepsis protocol COMPARISON: 11/12/2019 FINDINGS: Stable hyperexpanded lungs indicating COPD. Heart size is top normal. There are probably trace ple ural effusions. There are stable increased markings in the lung bases suggesting mild pulmonary edema or fibrosis. IMPRESSION: No change from prior. Electronically signed by Luis Fernando Overton 11/13/2019 7:32 PM) Comparison with other Films: no changes - CONSULTS/PCP/HOSPITALIST Notification #1 *Consult/PCP/Hospitalist*: Dr. ledesma Time Discussed: 22:41 Consult Disposition: Admit Departure - Departure Date of Disposition Decision: 11/13/19 Time of Disposition Decision: 22:43 DIAGNOSIS: COPD exacerbation Disposition: HOME 01 Certified Medical Emergency: Emergent Condition: Stable Referrals and Follow-Ups: None,PCP [Primary Care Provider] - - Critical Care Note This patient required my direct & personal management of CC.: No Attestation - Physician/ LAURENT Attestation Patient care was provided by Advanced Practice Provider:: No The physician spent face to face time with patient:: Yes Advanced Practice Provider documentation review:: Supervising physician onsite and consulted in the evaluation and care of this patient. The physician did have a face to face encounter with the patient. This chart was documented by the indicated scribe, (Katerin Espana Scribe) and accurately reflects the services I performed and decisions made by me, Marty Seo MD, as attested by the provider's signature.
[2019-11-14] MEDS: DUONEB (A & A) INH SCH ×6 (03:14→23:14)
[2019-11-14] MEDS: LEVAQUIN 500 MG/D5W 500 MG/100 ML IVPB IV SCH (03:19)
[2019-11-14] MEDS: SOLU-MEDROL IV SCH ×3 (03:20→18:16)
[2019-11-14] MEDS: NS 1,000 ML IV SCH ×3 (03:20→23:40)
[2019-11-14] MEDS: LOVENOX SUBQ SCH (03:20)
[2019-11-14] MEDS: PERCOCET-5 PO PRN ×4 (03:20→20:37)
--- NOTE | 2019-11-14 07:32 | EKG Report ---
Test Performed on : 11/13/2019 7:48:50 PM Test Reason : ED. NO EKG ORDER FOR MUSE Blood Pressure : / mmHG Vent. Rate : 116 BPM Atrial Rate : 116 BPM P-R Int : 132 ms QRS Dur : 076 ms QT Int : 352 ms P-R-T Axes : 100 050 076 degrees QTc Int : 489 ms Sinus tachycardia. Nonspecific T wave abnormality Abnormal ECG When compared with ECG of 12-NOV-2019 18:02, (Unconfirmed) premature atrial complexes. are no longer present Unconfirmed Result
--- NOTE | 2019-11-14 08:38 | HISTORY AND PHYSICAL ---
PRIMARY CARE PHYSICIAN: Dr. Sheikh. CHIEF COMPLAINT: Shortness of breath times several days. HISTORY OF PRESENTING ILLNESS: A 69-year-old female with a history of COPD, hyperlipidemia and hypertension had presented to the emergency department with several days history of having shortness of breath and cough. She states that she tried her nebulizers and she did not have any improvement. She is seen in the ER, she was somewhat short of breath and due to her presenting symptoms, it was thought that she would need admission for further management. At the time of my examination, patient denied any headache, fever, chills, chest pain, hemoptysis, melena, weight changes, but complained of cough and shortness of breath. PAST MEDICAL HISTORY: Includes COPD, hyperlipidemia, hypertension. PAST SURGICAL HISTORY: Colon resection, hysterectomy, throat surgery, left breast biopsy. ALLERGIES: No known drug allergies. CURRENT MEDICATIONS: 1. Alprazolam 1 mg p.o. daily. 2. Lipitor 80 mg p.o. daily. 3. Bentyl 20 mg p.o. t.i.d. 4. Tricor 145 mg p.o. at bedtime. 5. Prozac 40 mg p.o. b.i.d. 6. Lamotrigine 25 mg p.o. daily. 7. Omeprazole 20 mg p.o. daily. 8. Perphenazine 2 mg p.o. at bedtime. SOCIAL HISTORY: She is a former smoker. She denies any history of alcohol or illicit drug use. FAMILY HISTORY: Positive for coronary artery disease in father. REVIEW OF SYSTEMS: Fourteen point review of systems is as in HPI. Other systems negative. PHYSICAL EXAMINATION: GENERAL: The patient is currently resting comfortably but still having some difficulty completing full sentences. VITAL SIGNS: Temperature 97.5 degrees, pulse 111, respiration 34, blood pressure 134/96. HEENT: Atraumatic, normocephalic. Extraocular movements intact. PERRLA. NECK: No masses. CHEST: Scattered wheezes. CARDIOVASCULAR: Regular rate and rhythm. ABDOMEN: Soft, positive bowel sounds. EXTREMITIES: No edema. NEUROLOGIC: She is awake, alert, oriented x3. : No bladder distention. SKIN: Warm. LABORATORIES AND STUDIES: Sodium 124, potassium 3.7, chloride 86, CO2 20, BUN is 14, creatinine 0.7, glucose 130. WBCs 14.52, hemoglobin 14.1, hematocrit 41.5, platelets 286,000. UA is nitrite negative. Blood gas shows pH of 7.35, pCO2 41. Chest x-ray no change from previous. ASSESSMENT: A 71-year-old female with a history of COPD, hyperlipidemia, hypertension presented to emergency department with several days history of having worsening shortness of breath. She was evaluated in the emergency department. She was still somewhat dyspneic and due to her presenting symptoms, she will need admission for further management. 1. Acute chronic obstructive pulmonary disease exacerbation. 2. Hypertension. 3. Chronic hyponatremia. 4. Hyperlipidemia. PLAN: 1. We will admit patient to medical floor with telemetry. 2. We will continue with DuoNeb, IV Solu-Medrol, IV antibiotics. 3. Continue with supplemental oxygen and she may need home oxygen. We will evaluate for that. 4. Monitor blood pressure closely. 5. Continue with gentle hydration and monitor her electrolytes. 6. We will restart home medications including statin. 7. Put patient on DVT prophylaxis with Lovenox. 8. We will continue to follow and reassess. Make further recommendation based on patient's clinical course. cc: Guilherme Ken MD
[2019-11-14 10:39] LABS: AGAP 17; BUN 14 mg/dL (8-22); CALCIUM 9.2 mg/dL (8.8-10.2); CHLORIDE 89 mmol/L (98-107); COSMO 260; CREATININE 0.7 mg/dL (0.5-0.9); ESTIMATED GFR > 60; GLUCOSE 168 mg/dL (70-104); POTASSIUM 4.4 mmol/L (3.5-5.1); SODIUM 127 mmol/L (136-145); TCO2 21 mmol/L (25-35)
[2019-11-14] MEDS: PROZAC PO SCH ×2 (11:21→20:37)
[2019-11-14] MEDS: VASOTEC PO SCH (12:15)
[2019-11-14] MEDS: XANAX PO SCH ×3 (12:15→20:37)
--- NOTE | 2019-11-14 14:44 | Diag Imaging Result Doc PS360 ---
EXAM: CT THORAX W/O CONTRAST 11/14/2019 HISTORY: SOB TECHNIQUE: This exam was performed using automated exposure control, adjustment of mA or kV according to patient size, and/or use of iterative reconstruction technique. COMMENT: There are no previous thoracic studies available for comparison. There is COPD. There is some motion artifact. There are pleural-based opacities posteriorly in the right lower lobe which have not changed appreciably since the previous abdominal study of 08/14/2019. There are no abnormal fluid collections. There are calcifications in the coronary arteries. There is no evidence of significant adenopathy. The ribs appear to be intact. There are pleural calcifications on the right. IMPRESSION: No evidence of acute disease. COPD. Electronically signed by Shant Dumont 11/14/2019 2:40 PM
[2019-11-14] MEDS: NICODERM PATCH TD SCH (14:47)
[2019-11-14 15:13] LABS: ALLEN TEST NO; BE -2.2 mmoll (-3.0-3.0); BLOOD TYPE ARTERIAL; HCO3-(ACT) 23.1 mmoll (20.0-26.0); METHB 0.9 % (0.0-1.5); O2HB 93.6 % (95.0-99.0); PCO2(98.6) 41 mmHg (35-45); PO2(98.6) 70 mmHg (60-100); SAMPLE BLOOD; THB 13.7 g/dL (11.5-17.4); pH(98.6) 7.36 (7.35-7.45)
[2019-11-14 15:15] LABS: MODALITY CANNULA
[2019-11-14] MEDS: ADVAIR 500/50 DISKUS INH SCH (19:46)
[2019-11-14] MEDS ORDERED: MELATONIN PO ONE (22:11)
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
[2019-11-15] MEDS: SOLU-MEDROL IV SCH ×3 (02:57→21:08)
[2019-11-15] MEDS: LEVAQUIN 500 MG/D5W 500 MG/100 ML IVPB IV SCH (02:57)
[2019-11-15] MEDS: LOVENOX SUBQ SCH (02:57)
[2019-11-15] MEDS: DUONEB (A & A) INH SCH ×6 (03:38→23:31)
[2019-11-15 05:04] LABS: ALLEN TEST YES; BE 1.7 mmoll (-3.0-3.0); BLOOD TYPE ARTERIAL; HCO3-(ACT) 26.2 mmoll (20.0-26.0); METHB 1.1 % (0.0-1.5); O2(CT) 17.7 mL/dL (15.0-23.0); O2HB 95.8 % (95.0-99.0); PO2(98.6) 93 mmHg (60-100); SAMPLE BLOOD; SAO2 98.3 % (95.0-100.0); THB 13.1 g/dL (11.5-17.4); pH(98.6) 7.35 (7.35-7.45)
[2019-11-15 05:08] LABS: MODALITY CANNULA
[2019-11-15 05:12] LABS: PCO2(98.6) 51 mmHg (35-45)
[2019-11-15] MEDS: ADVAIR 500/50 DISKUS INH SCH ×2 (08:12→20:15)
[2019-11-15] MEDS: INCRUSE ELLIPTA INH SCH (08:13)
[2019-11-15] MEDS: PROZAC PO SCH ×2 (09:14→21:07)
[2019-11-15] MEDS: XANAX PO SCH ×3 (09:14→21:07)
[2019-11-15] MEDS: NICODERM PATCH TD SCH (09:14)
[2019-11-15] MEDS: VASOTEC PO SCH (09:14)
[2019-11-15 09:18] LABS: BASO# 0.01 X1000 (0.0-0.2); BASO% 0.1 % (0.0-0.8); HEMATOCRIT 40.4 % (37.0-47.0); HEMOGLOBIN 13.2 g/dL (12.0-16.0); IMM GRAN# 0.03 X1000 (0.0-0.04); IMM GRAN% 0.2 % (0.0-0.5); LYMPH# 0.35 X1000 (1.2-3.4); LYMPH% 2.5 % (20.5-51.1); MCH 28.3 PG (27-31); MCHC 32.7 g/dL (33-37); MCV 86.7 FL (81-99); MONO# 0.64 X1000 (0.11-0.59); MONO% 4.6 % (1.7-9.3); MPV 10.1 FL (7.4-10.4); NEUT# 12.78 X1000 (1.4-6.5); NEUT% 92.6 % (42.2-75.2); PLT 324 X1000 (130-400); RBC 4.66 XMIL (4.2-5.4); WBC 13.81 X1000 (4.8-10.8)
[2019-11-15 09:32] LABS: AGAP 16; BUN 20 mg/dL (8-22); CALCIUM 9.6 mg/dL (8.8-10.2); CHLORIDE 93 mmol/L (98-107); COSMO 270; CREATININE 0.8 mg/dL (0.5-0.9); ESTIMATED GFR > 60; GLUCOSE 148 mg/dL (70-104); POTASSIUM 4.3 mmol/L (3.5-5.1); SODIUM 132 mmol/L (136-145); TCO2 23 mmol/L (25-35)
[2019-11-15 09:44] LABS: BANDS 2 % (0-1); LYMPHS 2 % (21-51); MONO 4 % (1-9); SEGS 92 % (42-75)
[2019-11-15 09:45] LABS: POIKILOCYTOSIS 1+
--- NOTE | 2019-11-15 14:46 | PROGRESS NOTE ---
DATE: 11/15/2019 SUBJECTIVE: This patient is still complaining of shortness of breath. Her CO2 is elevated, but she has COPD exacerbation so this is expected, I do believe she has severe anxiety and she has been treated for that before even with her psychiatrist. As per the patient, she was on Xanax 3 times a day before and she was doing better. I started her on a low dose of Xanax, but I told her that probably upon discharge, she is going to get just a few doses of Xanax and that has to be followed up by her psychiatrist. As per the patient her psychiatrist believed that Xanax does not cause any effect and that is why it has been stopped. Apparently, she was placed on Lamictal for the anxiety, but she did not tolerate that. Today, she is still wheezing but compared with yesterday is better. I will decrease the dose of the steroids. OBJECTIVE: Vital Signs: Temperature 97.6 degrees, pulse 99, respiratory rate 18, blood pressure 129/74. Oxygen saturation 97% on 5 L of nasal cannula. HEENT: Head normocephalic, no trauma. PERRLA. Neck: Supple. No JVD. No masses. Central trachea. Chest: Decreased breath sounds globally with prolonged expiratory phase and expiratory wheezing bilaterally, better than yesterday. Abdomen: Soft, nontender, nondistended. No hepatosplenomegaly. Extremities: No edema. No clubbing. No cyanosis. Neurological: The patient is alert. She is oriented x3. She does have generalized anxiety. LABORATORY: WBC 13.8, hemoglobin 13.2, hematocrit 40.4, platelets 324,000. Sodium 132, potassium 4.3, chloride 93, bicarbonate 23, BUN 20, creatinine 0.8, glucose 148, calcium 9.6. ASSESSMENT AND PLAN: 1. Acute chronic obstructive pulmonary disease exacerbation. Continue breathing treatment, steroids, and she has been placed on antibiotics. I do believe she has bronchitis, which probably is chronic. 2. Hypoxemic and hypercarbic respiratory failure due to chronic obstructive pulmonary disease and bronchitis. I will continue with steroids, breathing treatment, oxygen supplementation and antibiotics. 3. Bronchitis as above. 4. Hypertension. Continue with same treatment. 5. Chronic hyponatremia. Actually, the sodium level is better compared with admission. Today is 132. 6. Hyperlipidemia. We will continue with her home medications. 7. Hypertension. I will continue with her enalapril. 8. Anxiety. Continue for now with Xanax and she is on Prozac as well. cc: Jani Benjamin MD
[2019-11-15] MEDS: MUCOMYST 20% INH SCH (20:00)
[2019-11-15] MEDS: PERCOCET-5 PO PRN (21:07)
[2019-11-15] MEDS: TRICOR PO SCH (21:07)
[2019-11-16] MEDS: DUONEB (A & A) INH SCH ×6 (03:26→23:15)
[2019-11-16 05:19] LABS: ALLEN TEST YES; BE 3.4 mmoll (-3.0-3.0); BLOOD TYPE ARTERIAL; HCO3-(ACT) 27.6 mmoll (20.0-26.0); METHB 1.6 % (0.0-1.5); O2(CT) 16.4 mL/dL (15.0-23.0); O2HB 95.8 % (95.0-99.0); PCO2(98.6) 48 mmHg (35-45); PO2(98.6) 104 mmHg (60-100); SAMPLE BLOOD; SAO2 98.6 % (95.0-100.0); THB 12.1 g/dL (11.5-17.4); pH(98.6) 7.39 (7.35-7.45)
[2019-11-16] MEDS: SOLU-MEDROL IV SCH ×2 (05:20→16:23)
[2019-11-16] MEDS: LOVENOX SUBQ SCH (05:20)
[2019-11-16] MEDS: LEVAQUIN 500 MG/D5W 500 MG/100 ML IVPB IV SCH (05:20)
[2019-11-16 05:22] LABS: MODALITY CANNULA
[2019-11-16 07:27] LABS: BASO# 0.02 X1000 (0.0-0.2); BASO% 0.1 % (0.0-0.8); HEMATOCRIT 39.3 % (37.0-47.0); HEMOGLOBIN 12.4 g/dL (12.0-16.0); IMM GRAN# 0.02 X1000 (0.0-0.04); IMM GRAN% 0.1 % (0.0-0.5); LYMPH% 3.4 % (20.5-51.1); MCHC 31.6 g/dL (33-37); MCV 88.7 FL (81-99); MONO# 0.87 X1000 (0.11-0.59); MONO% 5.9 % (1.7-9.3); MPV 9.8 FL (7.4-10.4); NEUT# 13.38 X1000 (1.4-6.5); NEUT% 90.5 % (42.2-75.2); PLT 271 X1000 (130-400); RBC 4.43 XMIL (4.2-5.4); RDW 14.5 % (11.5-14.5); WBC 14.79 X1000 (4.8-10.8)
[2019-11-16 07:53] LABS: AGAP 13; BUN 21 mg/dL (8-22); CALCIUM 9.5 mg/dL (8.8-10.2); CHLORIDE 96 mmol/L (98-107); COSMO 275; CREATININE 0.7 mg/dL (0.5-0.9); ESTIMATED GFR > 60; GLUCOSE 126 mg/dL (70-104); POTASSIUM 4.3 mmol/L (3.5-5.1); SODIUM 135 mmol/L (136-145); TCO2 26 mmol/L (25-35)
[2019-11-16] MEDS: MUCOMYST 20% INH SCH ×2 (08:20→20:37)
[2019-11-16] MEDS: ADVAIR 500/50 DISKUS INH SCH ×2 (08:20→20:02)
[2019-11-16] MEDS: INCRUSE ELLIPTA INH SCH (08:20)
[2019-11-16] MEDS: NICODERM PATCH TD SCH (08:58)
[2019-11-16] MEDS: XANAX PO SCH ×3 (08:58→20:38)
[2019-11-16] MEDS: VASOTEC PO SCH (08:58)
[2019-11-16] MEDS: LIPITOR PO SCH (08:58)
[2019-11-16] MEDS: PROZAC PO SCH ×2 (08:58→20:38)
--- NOTE | 2019-11-16 15:51 | PROGRESS NOTE ---
DATE: 11/16/2019 SUBJECTIVE: This patient seems to be doing better today, her wheezing has been improving significantly, but she is still having some bilaterally. She seems be less anxious as well. She used to be on Xanax before but this has been removed by her psychiatrist. As per the patient, her psychiatrist believes that Xanax does not work for her. She was placed then on Lamictal, but she did not tolerate that treatment. OBJECTIVE: Vital Signs: Temperature 97.4 degrees, pulse 99, respiratory rate 20, blood pressure 119/87. Oxygen saturation 95% on 5 L of nasal cannula. HEENT: Head normocephalic, no trauma. PERRLA. Neck: Supple. No JVD. No masses. Central trachea. Chest: Decreased breath sounds globally with prolonged expiratory phase and expiratory wheezing, but much better compared with yesterday. Abdomen: Soft, nontender, nondistended. No hepatosplenomegaly. Extremities: No edema. No clubbing. No cyanosis. Neurological: The patient is alert and oriented x3. She does have some generalized anxiety, better also. LABORATORY: WBC 14.7, hemoglobin 12.4, hematocrit 39.3, platelets 271,000. Sodium 135, potassium 4.3, chloride 96, bicarbonate 26, BUN 21, creatinine 0.7, glucose 126, calcium 9.5. ASSESSMENT AND PLAN: 1. Acute congestive heart failure exacerbation, continue breathing treatment. I have decreased the dose of the steroids today to 40 IV twice a day, and hopefully, we will decrease it again tomorrow or the day after the pending on her symptoms. I do believe also she has bronchitis. I will continue with the same treatment with antibiotics. 2. Hypoxemic and hypercarbic respiratory failure due to chronic obstructive pulmonary disease and bronchitis. Continue with same management. 3. Bronchitis continue with antibiotics. 4. Hypertension. Continue with same treatment. 5. Chronic hyponatremia. This is getting better. 6. Hyperlipidemia. Continue with home medications. 7. Hypertension stable. 8. Anxiety. Continue with Xanax and Prozac for now. cc: Jani Benjamin MD
[2019-11-16] MEDS: TRICOR PO SCH (20:38)
[2019-11-16] MEDS: PERCOCET-5 PO PRN (20:38)
[2019-11-17] MEDS: LEVAQUIN 500 MG/D5W 500 MG/100 ML IVPB IV SCH (03:14)
[2019-11-17] MEDS: LOVENOX SUBQ SCH (03:15)
[2019-11-17] MEDS: DUONEB (A & A) INH SCH ×6 (04:31→23:50)
[2019-11-17] MEDS: SOLU-MEDROL IV SCH ×2 (05:12→18:04)
[2019-11-17 07:44] LABS: BASO# 0.03 X1000 (0.0-0.2); BASO% 0.2 % (0.0-0.8); HEMATOCRIT 42.1 % (37.0-47.0); HEMOGLOBIN 13.3 g/dL (12.0-16.0); IMM GRAN# 0.09 X1000 (0.0-0.04); IMM GRAN% 0.6 % (0.0-0.5); LYMPH# 0.96 X1000 (1.2-3.4); LYMPH% 6.7 % (20.5-51.1); MCH 28.2 PG (27-31); MCHC 31.6 g/dL (33-37); MCV 89.2 FL (81-99); MONO% 4.9 % (1.7-9.3); MPV 9.8 FL (7.4-10.4); NEUT# 12.56 X1000 (1.4-6.5); NEUT% 87.6 % (42.2-75.2); PLT 313 X1000 (130-400); RBC 4.72 XMIL (4.2-5.4); RDW 14.7 % (11.5-14.5); WBC 14.34 X1000 (4.8-10.8)
[2019-11-17 08:05] LABS: AGAP 11; BUN 28 mg/dL (8-22); CALCIUM 9.3 mg/dL (8.8-10.2); CHLORIDE 98 mmol/L (98-107); COSMO 285; CREATININE 0.6 mg/dL (0.5-0.9); ESTIMATED GFR > 60; GLUCOSE 143 mg/dL (70-104); POTASSIUM 4.9 mmol/L (3.5-5.1); SODIUM 139 mmol/L (136-145); TCO2 30 mmol/L (25-35)
[2019-11-17] MEDS: ADVAIR 500/50 DISKUS INH SCH ×2 (08:08→20:12)
[2019-11-17] MEDS: INCRUSE ELLIPTA INH SCH (08:08)
[2019-11-17] MEDS: MUCOMYST 20% INH SCH ×2 (08:14→20:12)
[2019-11-17] MEDS: PROZAC PO SCH ×2 (08:40→20:42)
[2019-11-17] MEDS: LIPITOR PO SCH (08:40)
[2019-11-17] MEDS: NICODERM PATCH TD SCH (08:41)
[2019-11-17] MEDS: VASOTEC PO SCH (08:41)
[2019-11-17] MEDS: XANAX PO SCH ×3 (08:41→20:42)
[2019-11-17 08:52] LABS: BANDS 1 % (0-1); LYMPHS 13 % (21-51); MONO 3 % (1-9); SEGS 83 % (42-75)
[2019-11-17 08:54] LABS: HYPOCHROM 1+
[2019-11-17 08:55] LABS: LARGE PLATELETS OCCASIONAL
--- NOTE | 2019-11-17 19:31 | PROGRESS NOTE ---
DATE: 11/17/2019 SUBJECTIVE: This morning Ms. Daniel refers to be doing a little better. Denies any new complaints. Still has shortness of breath. OBJECTIVE: Vital signs: Blood pressure is 149/78, pulse of 93, respirations 16, temperature is 98.2 degrees. General: Ms. Daniel is a 69-year-old female. She is in bed in no distress. HEENT: Mucosa is pink and moist. Anicteric. Acyanotic. Neck: Supple. Chest: Air entry is bilaterally reduced, almost like silent, very, very faint wheezing bilateral. No crepitations. No rhonchi. Cardiovascular: Regular rate and rhythm. Abdomen: Soft, nontender. There is a ventral hernia noted. Extremities: No pedal edema. Scaly lesions in the middle aspect of the plantar surfaces of both feet. The patient refers to have psoriasis. LABORATORY DATA: WBC is 14.34, hemoglobin is 13.3, platelet count of 313,000. Chemistry is also reviewed unremarkable. ASSESSMENT: 1. Acute hypoxemic respiratory failure and acute on chronic hypercarbic respiratory failure. 2. Chronic obstructive pulmonary disease. 3. Diastolic heart failure. 4. Pulmonary artery hypertension. 5. Hypertension. 6. Chronic pain syndrome. 7. Atherosclerosis and coronary artery sclerosis on a CT scan. cc: Kaleb Jefferson MD
[2019-11-17] MEDS: TRICOR PO SCH (20:42)
[2019-11-17] MEDS: PERCOCET-5 PO PRN (20:45)
[2019-11-18] MEDS: LOVENOX SUBQ SCH (02:28)
[2019-11-18] MEDS: LEVAQUIN 500 MG/D5W 500 MG/100 ML IVPB IV SCH (02:29)
[2019-11-18] MEDS: DUONEB (A & A) INH SCH ×6 (03:22→23:42)
[2019-11-18] MEDS: SOLU-MEDROL IV SCH ×2 (04:25→16:13)
--- NOTE | 2019-11-18 07:13 | Diag Imaging Result Doc PS360 ---
EXAM: CHEST-1 VIEW HISTORY: Worsening SOB TECHNIQUE: Single view COMPARISON: 11/13/2019 FINDINGS: The lungs are hyperexpanded. The pulmonary vessels are small. No cardiomegaly. There is a small infiltrate or atelectasis in the right base on the current study. No pleural effusions identified. IMPRESSION: Emphysema with right basilar atelectasis or infiltrates. Electronically signed by Madi Whitaker 11/18/2019 7:11 AM
[2019-11-18] MEDS: INCRUSE ELLIPTA INH SCH (08:28)
[2019-11-18] MEDS: ADVAIR 500/50 DISKUS INH SCH ×2 (08:28→19:47)
[2019-11-18] MEDS: MUCOMYST 20% INH SCH ×2 (08:29→19:46)
[2019-11-18] MEDS: NICODERM PATCH TD SCH (09:42)
[2019-11-18] MEDS: PROZAC PO SCH ×2 (09:42→20:37)
[2019-11-18] MEDS: LIPITOR PO SCH (09:42)
[2019-11-18] MEDS: VASOTEC PO SCH (09:42)
[2019-11-18] MEDS: XANAX PO SCH ×3 (10:19→20:37)
[2019-11-18] MEDS: PERCOCET-5 PO PRN (12:22)
[2019-11-18] MEDS: MORPHINE IV PRN ×3 (12:26→21:35)
[2019-11-18] MEDS: DOXYCYCLINE 100 MG in NS 250 ML IV SCH (13:03)
--- NOTE | 2019-11-18 13:13 | Diag Imaging Result Doc PS360 ---
EXAM: KUB ABDOMEN HISTORY: SBO TECHNIQUE: Single view COMPARISON: 08/15/2019 FINDINGS: No free air beneath the diaphragm. Prominent stool throughout the colon. No bowel obstruction. No foreign body. There are pelvic phleboliths. IMPRESSION: Marked constipation Electronically signed by Madi Whitaker 11/18/2019 1:10 PM
[2019-11-18] MEDS ORDERED: FLEET ENEMA PR ONE (13:28)
[2019-11-18] MEDS: LACTULOSE PO SCH ×2 (13:59→20:36)
--- NOTE | 2019-11-18 15:54 | PROGRESS NOTE ---
DATE: 11/18/2019 SUBJECTIVE: This morning, Ms. Daniel refers to be doing fairly okay, but still has remarkable shortness of breath. She says she had multiple bowel movements yesterday as well. OBJECTIVE: Vital signs: Blood pressure is 146/80, pulse of 115, respirations 20. Temperature is 98.1 degrees. The patient is saturating about 96% on 4 L. General: Ms. Daniel is a 69-year-old, female. She is in bed in mild respiratory distress. Mucosa is pink and moist. Anicteric, acyanotic. Neck: Supple. Chest: Air entry is bilaterally reduced. There is some faint expiratory wheezing, but no crackles. Cardiovascular: Regular rate and rhythm. No murmurs, no rubs, no gallops. Gastrointestinal: Abdomen is soft, distended. There is an infraumbilical surgical scar. There is also an incisional left periumbilical hernia defect which is easily reducible. Bowel sounds present. Extremities: No pedal edema. Distal pulses present. Central nervous system: Patient is awake, alert, and oriented. LABORATORY DATA: None for this morning. IMAGING STUDIES: Chest x-ray shows emphysema with right basilar atelectasis or infiltrates. CURRENT MEDICATIONS: Have all been reviewed. ASSESSMENT: 1. Acute hypoxemic respiratory failure with acute on chronic hypercarbic respiratory failure. We will continue addressing the underlying disease. Patient is also on supplemental oxygen. 2. Chronic obstructive pulmonary disease, in exacerbation. We will continue with the steroids, antimicrobial therapy, and bronchodilation therapy. The patient is being seen by Pulmonary Medicine as well. 3. History of diastolic heart failure. 4. Pulmonary artery hypertension secondary to advanced chronic obstructive pulmonary disease. 5. Hypertension. Controlled. 6. Chronic pain syndrome. Patient is on narcotics at home. 7. Atherosclerosis of the abdominal aorta and also coronary artery atherosclerosis on CT scan. Patient is on statin medications. 8. Mildly distended abdomen, questionable for ileus versus constipation. We are going to get a KUB this morning. 9. History of psoriasis of the plantar surfaces of both feet noted. PLAN: In general, I think Ms. Daniel is fairly stable, continues to have some shortness of breath. Oxygen saturation is however, better. We are going to get a KUB this morning to rule out any ileus or constipation and address it accordingly. We will continue with the current levofloxacin, steroids, and bronchodilation therapy. I have added doxycycline to her antimicrobial coverage. We will repeat a chest x-ray tomorrow as well as her lab work including an ABG and follow it up accordingly. cc: Kaleb Jefferson MD
[2019-11-18] MEDS: TRICOR PO SCH (20:37)
[2019-11-19] MEDS: DOXYCYCLINE 100 MG in NS 250 ML IV SCH ×2 (00:11→13:12)
[2019-11-19] MEDS: MORPHINE IV PRN ×4 (01:51→23:06)
[2019-11-19] MEDS: LOVENOX SUBQ SCH (03:11)
[2019-11-19] MEDS: LEVAQUIN 500 MG/D5W 500 MG/100 ML IVPB IV SCH (03:12)
[2019-11-19] MEDS: DUONEB (A & A) INH SCH ×6 (03:32→23:50)
[2019-11-19 04:49] LABS: ALLEN TEST YES; BE 9.7 mmoll (-3.0-3.0); BLOOD TYPE ARTERIAL; HCO3-(ACT) 32.5 mmoll (20.0-26.0); METHB 1.4 % (0.0-1.5); O2(CT) 14.5 mL/dL (15.0-23.0); O2HB 95.7 % (95.0-99.0); PO2(98.6) 88 mmHg (60-100); SAMPLE BLOOD; SAO2 98.3 % (95.0-100.0); THB 10.7 g/dL (11.5-17.4); pH(98.6) 7.42 (7.35-7.45)
[2019-11-19 04:50] LABS: MODALITY CANNULA
[2019-11-19 04:52] LABS: PCO2(98.6) 55 mmHg (35-45)
[2019-11-19] MEDS: MUCOMYST 20% INH SCH ×2 (07:41→19:37)
[2019-11-19] MEDS: INCRUSE ELLIPTA INH SCH (07:42)
[2019-11-19] MEDS: ADVAIR 500/50 DISKUS INH SCH ×2 (07:42→19:36)
[2019-11-19 07:45] LABS: HEMOGLOBIN 12.1 g/dL (12.0-16.0); MCH 28.8 PG (27-31); MCHC 31.8 g/dL (33-37); MCV 90.5 FL (81-99); MPV 10.1 FL (7.4-10.4); RBC 4.2 XMIL (4.2-5.4); RDW 14.4 % (11.5-14.5); WBC 11.66 X1000 (4.8-10.8)
[2019-11-19 08:05] LABS: AGAP 12; ALBUMIN 3.2 g/dL (3.5-5.0); BUN 22 mg/dL (8-22); CALCIUM 8.9 mg/dL (8.8-10.2); CHLORIDE 95 mmol/L (98-107); COSMO 276; CREATININE 0.8 mg/dL (0.5-0.9); ESTIMATED GFR > 60; GLUCOSE 104 mg/dL (70-104); PHOSPHORUS 3.6 mg/dL (2.7-4.5); POTASSIUM 4.9 mmol/L (3.5-5.1); SODIUM 136 mmol/L (136-145); TCO2 29 mmol/L (25-35)
[2019-11-19] MEDS: VASOTEC PO SCH (08:05)
[2019-11-19] MEDS: LACTULOSE PO SCH ×2 (08:06→21:58)
[2019-11-19] MEDS: LIPITOR PO SCH (08:06)
[2019-11-19] MEDS: XANAX PO SCH ×3 (08:06→21:58)
[2019-11-19] MEDS: PROZAC PO SCH ×2 (08:06→21:58)
[2019-11-19] MEDS: NICODERM PATCH TD SCH (08:12)
--- NOTE | 2019-11-19 08:46 | Diag Imaging Result Doc PS360 ---
EXAM: CHEST-2 VIEWS INDICATION: hypoxia TECHNIQUE: 2 views COMPARISON: 11/18/2019 FINDINGS: COPD changes are again noted. There is suggestion of mild atelectasis at both lung bases. This is essentially stable. Superimposed infiltrate is possible but less likely. No new consolidation is identified. Cardiac silhouette is stable. IMPRESSION: Stable chest. Electronically signed by Jose M Espana 11/19/2019 8:44 AM
[2019-11-19] MEDS: SOLU-MEDROL IV SCH (16:56)
--- NOTE | 2019-11-19 17:01 | PROGRESS NOTE ---
DATE: 11/19/2019 INTERVAL HISTORY: The patient is still with some dyspnea on exertion but beginning to approach baseline. Oxygenation reasonable on home 2 to 3 L of O2. No new complaints. No acute events overnight. REVIEW OF SYSTEMS: Twelve point review of systems negative except as per interval history. LABS: WBC 11.6, hemoglobin 12.1, hematocrit 38.0, platelets 279,000. ABG with pH 7.42, pCO2 55, pO2 88 on 4 L by nasal cannula. Sodium 136, potassium 4.9, BUN 22, creatinine 0.8, glucose 104, albumin 3.2. IMAGING: Chest x-ray with mild atelectasis at both lung bases and COPD changes, but no clear acute process. VITALS: Temperature maximum 98.9 degrees, pulse 82, respirations 16, blood pressure 132/76, O2 saturation 100% on 3 L by nasal cannula. PHYSICAL EXAMINATION: General: No acute distress. Vitals: As above. HEENT: Normocephalic, atraumatic. Moist mucous membranes. Neck: No cervical adenopathy. Cardiovascular: Regular rate and rhythm. No murmurs noted. Pulmonary: Moderate air entry throughout remains with essentially no wheezing or rales at this point. Abdomen: Soft, nontender, nondistended. Bowel sounds positive. Well-healed surgical scars. Left periumbilical hernia stable which is easily reducible. Extremities: Peripheral pulses intact. No clubbing or cyanosis. Neurologic: Cranial nerves grossly intact. No focal deficits. Psychiatric: Normal mood and affect. Awake, alert, oriented x3. Skin: No new rashes or lesions noted. ASSESSMENT AND PLAN: 1. Acute on chronic hypoxic and hypercapnic respiratory failure. Patient on 2 to 3 L of oxygen at home, secondary to chronic obstructive pulmonary disease exacerbation primarily. This is approaching resolution. Continue steroids and DuoNebs. Has been on antibiotics but not really any strong evidence for pneumonia. Will likely discontinue antibiotics on discharge. 2. Chronic obstructive pulmonary disease exacerbation. Treating as above. 3. Chronic diastolic congestive heart failure. No volume overload noted. 4. Pulmonary hypertension secondary to her chronic obstructive pulmonary disease. Monitor. 5. Hypertension. Acceptable control currently. 6. Chronic pain. Continue home medicines. 7. Constipation identified on x-ray yesterday. The patient was placed on lactulose twice a day. Will continue. 8. Psoriasis is stable. No new lesions. 9. Disposition. The patient's respiratory status is markedly improved. Still with some elevated CO2, but looks to be probably baseline. If she continues to do well will likely be able to discharge home with home health tomorrow.
[2019-11-19] MEDS: TRICOR PO SCH (21:58)
[2019-11-20] MEDS: DOXYCYCLINE 100 MG in NS 250 ML IV SCH ×2 (00:17→11:16)
[2019-11-20] MEDS: DUONEB (A & A) INH SCH ×3 (03:29→11:14)
[2019-11-20] MEDS: LEVAQUIN 500 MG/D5W 500 MG/100 ML IVPB IV SCH (03:44)
[2019-11-20] MEDS: LOVENOX SUBQ SCH (03:45)
[2019-11-20] MEDS: MORPHINE IV PRN ×2 (04:05→08:58)
[2019-11-20] MEDS: SOLU-MEDROL IV SCH (04:06)
[2019-11-20] MEDS: ADVAIR 500/50 DISKUS INH SCH (07:49)
[2019-11-20] MEDS: INCRUSE ELLIPTA INH SCH (07:49)
[2019-11-20] MEDS: MUCOMYST 20% INH SCH (07:50)
[2019-11-20] MEDS: XANAX PO SCH ×2 (08:59→15:19)
[2019-11-20] MEDS: LIPITOR PO SCH (08:59)
[2019-11-20] MEDS: NICODERM PATCH TD SCH (09:00)
[2019-11-20] MEDS: VASOTEC PO SCH (09:00)
[2019-11-20] MEDS: LACTULOSE PO SCH (09:00)
[2019-11-20] MEDS: PROZAC PO SCH (09:00)
[2019-11-20 13:38] VITALS: BP 118/60
--- NOTE | 2019-11-22 16:29 | DISCHARGE SUMMARY ---
ADMISSION DATE: 11/14/2019 DISCHARGE DATE: 11/20/2019 CONSULTS: Pulmonology, Dr. Cerrato. DISCHARGE DIAGNOSES: 1. Acute on chronic hypoxic and hypercapnic respiratory failure. 2. Chronic obstructive pulmonary disease exacerbation. 3. Chronic diastolic congestive heart failure. 4. Pulmonary hypertension. 5. Hypertension. 6. Chronic pain. 7. Constipation. 8. Psoriasis. HOSPITAL COURSE: The patient with a history of chronic obstructive pulmonary disease and chronic hypoxic hypercapnic respiratory failure, presents for several days of shortness of breath and cough. She tried her nebulizers, but did not improve. Initial evaluation showed unremarkable chest CT aside from known COPD and wheezing, so it is thought she had COPD exacerbation. She did have some intermittent hypoxia after admission beyond baseline down to 87% on 5 L by nasal cannula. Her initial ABG did not really show much CO2 retention, but she did later develop some CO2 retention peaking of a pH 7.35 and pCO2 of 51 before coming back down. Before that she was borderline elevated, so it was thought that some of this was likely chronic and related to her chronic obstructive pulmonary disease. She was placed on steroids, nebs. She was placed on Levaquin initially. She was later transitioned to doxycycline, but antibiotics were not continued on discharge as no compelling evidence of infection was identified and patient had been on antibiotics for 6-7 days. The patient's respiratory status slowly but steadily improved with nebulizers and steroids. Steroids were gradually weaned down. Once patient was saturating reasonably well on the 3 L that she was on at home, she was transitioned to oral steroids and discharged home to follow up with her PCP and pulmonology. Dr. Cerrato with pulmonology did see the patient and recommended ongoing supportive treatment with steroids and bronchodilators. The patient's chronic medical issues improved including diastolic CHF, pulmonary hypertension and psoriasis were stable. She did have some constipation which was improved with MiraLAX. Her lactulose and MiraLAX which she was continued on on discharge. DISCHARGE VITALS: Temperature 98.1 degrees, pulse 102, respirations 18, blood pressure 118/60, O2 saturation 95% on 3 L by nasal cannula. DISCHARGE DIET: Regular. DISCHARGE MEDICATIONS: Advair 500/50 one puff b.i.d., increase Ellipta inhaler daily, atorvastatin 80 mg p.o. daily, Prozac 40 mg p.o. daily, Tricor 145 mg p.o. at bedtime, Medrol Dosepak as directed, MiraLAX 17 gm p.o. b.i.d. as needed for constipation, nicotine patch 20 mg daily, enalapril 10 mg p.o. daily, albuterol inhaler every 6 hours as needed. FOLLOWUP AND PLAN: The patient discharging home on a short steroid taper. Follow up with PCP and Pulmonology. Greater 30 minutes spent in arranging discharge and counseling patient.
== END 2019-11-20 15:55 | disposition home health service (06) | DRG 190 ==
LOC: ED 18:36 → 3N 11-14 02:36 → SUATTDRO 11-14 02:36
PROVIDERS: ATTEND Internal Medicine